=== PATIENT | male | born 1960 | race Caucasian/White ===

== ENCOUNTER → 2018-04-24 | Outpatient (CLI) | payer OTHER ==
[2018-04-24 11:56] LABS: BASO # 0.1 10^3/uL (0.0-0.2); BASO % 0.7 % (0.0-1.0); EOS # 0.2 10^3/uL (0.0-0.50); EOS % 2.9 % (0.0-3.0); HEMOGLOBIN 15.1 g/dl (13.5-17.5); IMMATURE GRANULOCYTE % 0.3 % (0-3.0); LYMPH # 2.2 10^3/uL (1.5-4.5); LYMPH % 28.9 % (24.0-44.0); MEAN CORPUSCULAR HEMOGLOBIN 29.9 pg (27.0-33.0); MEAN CORPUSCULAR HGB CONC 33.6 g/dl (32.0-36.5); MEAN CORPUSCULAR VOLUME 89.1 fl (80.0-96.0); MONO # 0.6 10^3/uL (0.0-0.8); MONO % 7.8 % (0.0-5.0); NEUTROPHILS # 4.5 10^3/uL (1.8-7.7); NEUTROPHILS % 59.4 % (36.0-66.0); PLATELET COUNT, AUTOMATED 244 10^3/uL (150-450); RED BLOOD COUNT 5.05 10^6/uL (4.30-6.10); RED CELL DISTRIBUTION WIDTH 13.4 % (11.5-14.5); WHITE BLOOD COUNT 7.6 10^3/uL (4.0-10.0)
[2018-04-24 19:14] LABS: ALBUMIN 3.7 GM/DL (3.2-5.2); ALBUMIN/GLOBULIN RATIO 1.16 (1.00-1.93); ALKALINE PHOSPHATASE 63 U/L (45-117); ALT/SGPT 41 U/L (12-78); ANION GAP 10 MEQ/L (8-16); AST/SGOT 20 U/L (7-37); BILIRUBIN,TOTAL 0.4 MG/DL (0.2-1.0); BLOOD UREA NITROGEN 14 MG/DL (7-18); CARBON DIOXIDE LEVEL 27 MEQ/L (21-32); CHLORIDE LEVEL 105 MEQ/L (98-107); CHOLESTEROL LEVEL 213 MG/DL (<200); CHOLESTEROL RISK RATIO 5.071 (<5); CREATININE FOR GFR 1.39 MG/DL (0.70-1.30); FREE T4 1.16 NG/DL (0.76-1.46); GLOMERULAR FILTRATION RATE 56.1 (>56); GLUCOSE, FASTING 89 MG/DL (70-100); HDL CHOLESTEROL 42 MG/DL (>40); LDL CHOLESTEROL 100 MG/DL (<100); NON-HDL-C 171 MG/DL; POTASSIUM SERUM 4.6 MEQ/L (3.5-5.1); SODIUM LEVEL 142 MEQ/L (136-145); TOTAL PROTEIN 6.9 GM/DL (6.4-8.2); TRIGLYCERIDES LEVEL 356 MG/DL (<150)
== END ==
LOC: M LRY 08:03
DX: C84.00 Mycosis fungoides, unspecified site (principal)
CPT/HCPCS: 80053

== ENCOUNTER → 2018-05-08 | Outpatient (CLI) | payer OTHER ==
[2018-05-08 11:21] LABS: BASO # 0.1 10^3/uL (0.0-0.2); BASO % 0.7 % (0.0-1.0); EOS # 0.2 10^3/uL (0.0-0.50); EOS % 2.3 % (0.0-3.0); HEMATOCRIT 44.6 % (42.0-52.0); HEMOGLOBIN 15.3 g/dl (13.5-17.5); IMMATURE GRANULOCYTE % 0.3 % (0-3.0); LYMPH # 2.5 10^3/uL (1.5-4.5); LYMPH % 27.6 % (24.0-44.0); MEAN CORPUSCULAR HEMOGLOBIN 30.1 pg (27.0-33.0); MEAN CORPUSCULAR HGB CONC 34.3 g/dl (32.0-36.5); MEAN CORPUSCULAR VOLUME 87.6 fl (80.0-96.0); MONO # 0.8 10^3/uL (0.0-0.8); MONO % 8.6 % (0.0-5.0); NEUTROPHILS # 5.5 10^3/uL (1.8-7.7); NEUTROPHILS % 60.5 % (36.0-66.0); PLATELET COUNT, AUTOMATED 223 10^3/uL (150-450); RED BLOOD COUNT 5.09 10^6/uL (4.30-6.10); RED CELL DISTRIBUTION WIDTH 13.6 % (11.5-14.5); WHITE BLOOD COUNT 9.1 10^3/uL (4.0-10.0)
[2018-05-08 12:16] LABS: ALBUMIN 3.7 GM/DL (3.2-5.2); ALBUMIN/GLOBULIN RATIO 1.16 (1.00-1.93); ALKALINE PHOSPHATASE 59 U/L (45-117); ALT/SGPT 30 U/L (12-78); ANION GAP 8 MEQ/L (8-16); AST/SGOT 16 U/L (7-37); BILIRUBIN,TOTAL 0.5 MG/DL (0.2-1.0); BLOOD UREA NITROGEN 13 MG/DL (7-18); CALCIUM LEVEL 9.3 MG/DL (8.5-10.1); CARBON DIOXIDE LEVEL 27 MEQ/L (21-32); CHLORIDE LEVEL 106 MEQ/L (98-107); CHOLESTEROL LEVEL 251 MG/DL (<200); CHOLESTEROL RISK RATIO 5.704 (<5); CREATININE FOR GFR 1.35 MG/DL (0.70-1.30); GLUCOSE, FASTING 89 MG/DL (70-100); HDL CHOLESTEROL 44 MG/DL (>40); LDL CHOLESTEROL 158 MG/DL (<100); NON-HDL-C 207 MG/DL; POTASSIUM SERUM 4.6 MEQ/L (3.5-5.1); SODIUM LEVEL 141 MEQ/L (136-145); TOTAL PROTEIN 6.9 GM/DL (6.4-8.2); TRIGLYCERIDES LEVEL 244 MG/DL (<150)
== END ==
LOC: M LRY 08:59
DX: C84.00 Mycosis fungoides, unspecified site (principal)
CPT/HCPCS: 80053

== ENCOUNTER → 2018-05-22 | Outpatient (CLI) | payer OTHER ==
[2018-05-22 12:21] LABS: BASO # 0.1 10^3/uL (0.0-0.2); BASO % 0.9 % (0.0-1.0); EOS # 0.2 10^3/uL (0.0-0.50); EOS % 3.4 % (0.0-3.0); HEMATOCRIT 43.9 % (42.0-52.0); HEMOGLOBIN 14.7 g/dl (13.5-17.5); IMMATURE GRANULOCYTE % 0.3 % (0-3.0); LYMPH # 2.6 10^3/uL (1.5-4.5); LYMPH % 37.1 % (24.0-44.0); MEAN CORPUSCULAR HEMOGLOBIN 29.6 pg (27.0-33.0); MEAN CORPUSCULAR HGB CONC 33.5 g/dl (32.0-36.5); MEAN CORPUSCULAR VOLUME 88.3 fl (80.0-96.0); MONO # 0.6 10^3/uL (0.0-0.8); MONO % 8.8 % (0.0-5.0); NEUTROPHILS # 3.5 10^3/uL (1.8-7.7); NEUTROPHILS % 49.5 % (36.0-66.0); PLATELET COUNT, AUTOMATED 239 10^3/uL (150-450); RED BLOOD COUNT 4.97 10^6/uL (4.30-6.10); RED CELL DISTRIBUTION WIDTH 13.5 % (11.5-14.5)
[2018-05-22 12:38] LABS: ALBUMIN 3.6 GM/DL (3.2-5.2); ALBUMIN/GLOBULIN RATIO 1.06 (1.00-1.93); ALKALINE PHOSPHATASE 51 U/L (45-117); ALT/SGPT 30 U/L (12-78); ANION GAP 8 MEQ/L (8-16); AST/SGOT 15 U/L (7-37); BILIRUBIN,TOTAL 0.3 MG/DL (0.2-1.0); BLOOD UREA NITROGEN 17 MG/DL (7-18); CALCIUM LEVEL 8.9 MG/DL (8.5-10.1); CARBON DIOXIDE LEVEL 25 MEQ/L (21-32); CHLORIDE LEVEL 105 MEQ/L (98-107); CHOLESTEROL LEVEL 277 MG/DL (<200); CHOLESTEROL RISK RATIO 6.756 (<5); CREATININE FOR GFR 1.21 MG/DL (0.70-1.30); GLOMERULAR FILTRATION RATE > 60.0 (>56); GLUCOSE, FASTING 96 MG/DL (70-100); HDL CHOLESTEROL 41 MG/DL (>40); LDL CHOLESTEROL 157 MG/DL (<100); NON-HDL-C 236 MG/DL; POTASSIUM SERUM 4.4 MEQ/L (3.5-5.1); SODIUM LEVEL 138 MEQ/L (136-145); TRIGLYCERIDES LEVEL 394 MG/DL (<150)
== END ==
LOC: M LRY 09:12
DX: C84.00 Mycosis fungoides, unspecified site (principal)
CPT/HCPCS: 80053

== ENCOUNTER → 2018-07-17 | Outpatient (CLI) | payer OTHER ==
[~2018-07-17] MED LIST: GASTROGRAFIN SOLUTION 30ML (Q9963) As Ordered ONE; ISOVUE-370 76% 100ML VIAL (Q9967) As Ordered ONE
--- NOTE | 2018-07-18 06:51 | REP ---
Clinical: Mycosis fungoides. Technique: Axial contrast enhanced images from the thoracic inlet to the upper abdomen with coronal and sagittal re-formations using 100 ml Isovue 370 intravenous contrast material. Findings: The bilateral lung whaley are well-aerated and essentially clear 2 mm and 3 mm nodules are identified along the right major fissure (images [id number]) which are nonspecific. No further consolidation, significant nodule or mass lesion appreciated. A small calcified granuloma is noted in the anterior left lower lobe (image 55). No pleural effusion or pneumothorax. Tracheobronchial tree is patent. Mediastinum demonstrates normal thoracic aorta, pulmonary vasculature and heart/pericardium. No axillary, hilar, or mediastinal adenopathy. Surrounding musculoskeletal structures are intact and without focal abnormality. Limited upper abdomen demonstrates normal bilateral adrenal glands. Impression: Two nonspecific noncalcified nodules measuring 2-3 mm along the right major fissure. Examination is otherwise normal. Electronically Signed by Jonathan Harrison MD 07/18/2018 06:43 A
--- NOTE | 2018-07-18 06:56 | REP ---
Clinical: Mycosis fungoides. Technique: Axial contrast enhanced images from the lung bases to the pubic symphysis using oral (per protocol) and 100 ml Isovue 370 intravenous contrast material with delayed images of the abdomen as well as coronal and sagittal re-formations. Comparison: None. Findings: Lung bases are clear. Visualized heart and pericardium normal. Diffuse fatty infiltration to the liver noted without focal hepatic lesion. Spleen, pancreas, gallbladder, bilateral adrenal glands and kidneys are normal. The enteric system including stomach, small, and large bowel is without obstruction or acute inflammatory process. Normal terminal ileum and appendix are identified in the right lower quadrant. Pelvis demonstrates normal sigmoid colon. The prostate gland is significantly heterogeneous and enlarged measuring 6 cm maximal diameter and demonstrating mass effect on the bladder. Small fat containing bilateral inguinal hernias noted. No ascites. No free air. No intraperitoneal or retroperitoneal adenopathy. Subcentimeter fat containing periumbilical hernia identified. Abdominal aorta and vasculature without aneurysm or dissection. Musculoskeletal structures are intact. Impression: 1. Hepatic steatosis. 2. Enlarged heterogeneous enhancing prostate gland measuring 6 cm maximal diameter. 3. Small fat containing bilateral inguinal hernias. Electronically Signed by Jonathan Harrison MD 07/18/2018 06:47 A
== END ==
LOC: M RAD 12:35
PROVIDERS: ATTEND Dermatology
DX: C84.00 Mycosis fungoides, unspecified site (principal); K76.89 Other specified diseases of liver; N40.0 Benign prostatic hyperplasia without lower urinary tract symptoms; K40.90 Unilateral inguinal hernia, without obstruction or gangrene, not specified as recurrent; R91.8 Other nonspecific abnormal finding of lung field
CPT/HCPCS: 71260; 74177; Q9963; Q9967

== ENCOUNTER → 2018-09-04 | Outpatient (CLI) | payer OTHER ==
[2018-09-04 12:50] LABS: BASO # 0.1 10^3/uL (0.0-0.2); BASO % 0.7 % (0.0-1.0); EOS # 0.2 10^3/uL (0.0-0.50); EOS % 2.7 % (0.0-3.0); HEMATOCRIT 44.2 % (42.0-52.0); HEMOGLOBIN 14.3 g/dl (13.5-17.5); LYMPH # 2.4 10^3/uL (1.5-4.5); LYMPH % 29.2 % (24.0-44.0); MEAN CORPUSCULAR HGB CONC 32.4 g/dl (32.0-36.5); MEAN CORPUSCULAR VOLUME 92.9 fl (80.0-96.0); MONO # 0.7 10^3/uL (0.0-0.8); MONO % 8.3 % (0.0-5.0); NEUTROPHILS # 4.9 10^3/uL (1.8-7.7); NEUTROPHILS % 58.7 % (36.0-66.0); PLATELET COUNT, AUTOMATED 204 10^3/uL (150-450); RED BLOOD COUNT 4.76 10^6/uL (4.30-6.10); WHITE BLOOD COUNT 8.3 10^3/uL (4.0-10.0)
[2018-09-04 12:55] LABS: ALBUMIN 3.9 GM/DL (3.2-5.2); ALT/SGPT 44 U/L (12-78); BILIRUBIN,TOTAL 0.4 MG/DL (0.2-1.0); BLOOD UREA NITROGEN 15 MG/DL (7-18); CALCIUM LEVEL 9.3 MG/DL (8.5-10.1); CARBON DIOXIDE LEVEL 28 MEQ/L (21-32); CHLORIDE LEVEL 107 MEQ/L (98-107); CHOLESTEROL LEVEL 233 MG/DL (<200); CHOLESTEROL RISK RATIO 4.755 (<5); CREATININE FOR GFR 1.24 MG/DL (0.70-1.30); GLOMERULAR FILTRATION RATE > 60.0 (>56); GLUCOSE, FASTING 92 MG/DL (70-100); HDL CHOLESTEROL 49 MG/DL (>40); LDL CHOLESTEROL 132 MG/DL (<100); NON-HDL-C 184 MG/DL; POTASSIUM SERUM 4.4 MEQ/L (3.5-5.1); SODIUM LEVEL 143 MEQ/L (136-145); THYROXINE (T4) 9.4 UG/DL (4.5-12.0); TOTAL PROTEIN 7.1 GM/DL (6.4-8.2); TRIGLYCERIDES LEVEL 259 MG/DL (<150)
== END ==
LOC: M LRY 09:21
PROVIDERS: ATTEND Dermatology
DX: C84.00 Mycosis fungoides, unspecified site (principal)

== ENCOUNTER → 2019-02-06 | Outpatient (CLI) | payer OTHER ==
[2019-02-06 11:24] LABS: BASO # 0.1 10^3/uL (0.0-0.2); BASO % 0.8 % (0.0-1.0); EOS # 0.2 10^3/uL (0.0-0.50); EOS % 2.9 % (0.0-3.0); HEMATOCRIT 43.6 % (42.0-52.0); HEMOGLOBIN 14.5 g/dl (13.5-17.5); LYMPH # 2.7 10^3/uL (1.5-4.5); LYMPH % 36.6 % (24.0-44.0); MEAN CORPUSCULAR HEMOGLOBIN 30.4 pg (27.0-33.0); MEAN CORPUSCULAR HGB CONC 33.3 g/dl (32.0-36.5); MEAN CORPUSCULAR VOLUME 91.4 fl (80.0-96.0); MONO # 0.7 10^3/uL (0.0-0.8); MONO % 9.8 % (0.0-5.0); NEUTROPHILS # 3.7 10^3/uL (1.8-7.7); NEUTROPHILS % 49.8 % (36.0-66.0); PLATELET COUNT, AUTOMATED 195 10^3/uL (150-450); RED BLOOD COUNT 4.77 10^6/uL (4.30-6.10); WHITE BLOOD COUNT 7.3 10^3/uL (4.0-10.0)
[2019-02-06 11:28] LABS: ALBUMIN 3.6 GM/DL (3.2-5.2); ALT/SGPT 29 U/L (12-78); BILIRUBIN,TOTAL 0.3 MG/DL (0.2-1.0); BLOOD UREA NITROGEN 12 MG/DL (7-18); CALCIUM LEVEL 9.2 MG/DL (8.5-10.1); CARBON DIOXIDE LEVEL 30 MEQ/L (21-32); CHLORIDE LEVEL 109 MEQ/L (98-107); CHOLESTEROL LEVEL 189 MG/DL (<200); CHOLESTEROL RISK RATIO 4.108 (<5); CREATININE FOR GFR 1.27 MG/DL (0.70-1.30); FREE T4 0.92 NG/DL (0.76-1.46); GLOMERULAR FILTRATION RATE > 60.0 (>56); GLUCOSE, FASTING 77 MG/DL (70-100); HDL CHOLESTEROL 46 MG/DL (>40); LDL CHOLESTEROL 77 MG/DL (<100); NON-HDL-C 143 MG/DL; POTASSIUM SERUM 4.6 MEQ/L (3.5-5.1); SODIUM LEVEL 142 MEQ/L (136-145); TOTAL PROTEIN 6.6 GM/DL (6.4-8.2); TRIGLYCERIDES LEVEL 330 MG/DL (<150)
== END ==
LOC: M LRY 08:16
PROVIDERS: ATTEND Dermatology
DX: C84.00 Mycosis fungoides, unspecified site (principal)

== ENCOUNTER → 2019-12-17 | Outpatient (CLI) | payer OTHER ==
[2019-12-17 13:20] LABS: BASO # 0.1 10^3/uL (0.0-0.2); BASO % 0.6 % (0.0-1.0); EOS # 0.2 10^3/uL (0.0-0.5); EOS % 2.1 % (0.0-3.0); HEMATOCRIT 44.9 % (42.0-52.0); HEMOGLOBIN 14.7 g/dl (13.5-17.5); LYMPH # 3.2 10^3/uL (1.5-5.0); MEAN CORPUSCULAR HEMOGLOBIN 29.8 pg (27.0-33.0); MEAN CORPUSCULAR HGB CONC 32.7 g/dl (32.0-36.5); MEAN CORPUSCULAR VOLUME 91.1 fl (80.0-96.0); MONO % 10.1 % (0.0-5.0); NEUTROPHILS # 5.4 10^3/uL (1.5-8.5); PLATELET COUNT, AUTOMATED 212 10^3/uL (150-450); RED BLOOD COUNT 4.93 10^6/uL (4.30-6.10); WHITE BLOOD COUNT 9.9 10^3/uL (4.0-10.0)
[2019-12-17 14:14] LABS: ALBUMIN 3.8 GM/DL (3.2-5.2); ALT/SGPT 48 U/L (12-78); BILIRUBIN,TOTAL 0.3 MG/DL (0.2-1.0); BLOOD UREA NITROGEN 13 MG/DL (7-18); CALCIUM LEVEL 9.5 MG/DL (8.5-10.1); CARBON DIOXIDE LEVEL 29 MEQ/L (21-32); CHLORIDE LEVEL 107 MEQ/L (98-107); CHOLESTEROL LEVEL 244 MG/DL (<200); CHOLESTEROL RISK RATIO 5.304 (<5); FREE T4 1.16 NG/DL (0.76-1.46); GLOMERULAR FILTRATION RATE > 60.0 (>56); GLUCOSE, FASTING 70 MG/DL (70-100); HDL CHOLESTEROL 46 MG/DL (>40); LDL CHOLESTEROL 143 MG/DL (<100); NON-HDL-C 198 MG/DL; POTASSIUM SERUM 4.9 MEQ/L (3.5-5.1); SODIUM LEVEL 140 MEQ/L (136-145); TRIGLYCERIDES LEVEL 277 MG/DL (<150)
== END ==
LOC: M LRY 09:11
PROVIDERS: ATTEND Dermatology
DX: C84.00 Mycosis fungoides, unspecified site (principal)

== ENCOUNTER → 2020-12-04 | Outpatient (CLI) | payer OTHER ==
--- NOTE | 2020-12-04 15:01 | RADONC.CN ---
Radiation Oncology Hx/Consult Radiation Oncology Consult Date of Service: Dec 04, 2020 Pt Identifier John Tomlinson is a 60 year old male with a history of mycosis fungoides, mixed patch and plaque type, dating back many years. He has received a number of therapies for this including PUVA, topical corticosteroids, and also focal RT to the left pre-auricular and post-auricular skin in 2019 @ [facility]. He is seen today at the request of Tish Lou ([facility]) for consideration of additional focal RT to a troublesome plaque on the posterior right thigh, which bothers him when he sits. Diagnosis/Treatment History Oncologic History Followed @ [facility] as well as [facility] (Dr. Neri) pathology consistent with MF 2018 Has tried PUVA, Bexarotene, focal RT 12 Gy in 3 fractions to left pre- and post- auricular skin 2019, all with good effect Currently using topical fluocinonide Interval History John is former , now works as a civilian contractor at [employer]. He has no pain from his MF per se, but notes discomfort with friction. No pruritis, no bleeding. The right posterior thigh lesion has been present for at least 6 months. It is bothersome because it rubs and is uncomfortable when he sits. He has no fevers, chills, night sweats or weight loss. [facility] Past Medical History: None remarkable Past Surgical History: None remarkable Family History: None remarkable Social History: Current 1/2 ppd smoker for 30 years Drinks beer 1-2 days per week Allergies / Meds Allergies: Coded Allergies: No Known Allergies (Unverified , 02/01/16) Review of Systems General: Reports: Normal Appetite Constitutional: Denies: Chills, Fever, Night Sweats Eyes: Denies: Pain, Vision change HEENT: Denies: Head Aches, Dysphagia, Sore Throat Skin: Reports: Lesions Pulmonary: Denies: Dyspnea, Cough Cardiovascular: Denies: Chest Pain, Palpitations, Edema Gastrointestinal: Denies: Nausea, Vomiting, Abdominal Pain, Diarrhea Genitourinary: Denies: Dysuria, Frequency, Incontinence Hematologic: Denies: Bruising, Petecchia, Enlarged Lymph Nodes Musculoskeletal: Denies: Neck pain, Back pain Neurological: Denies: Weakness, Numbness, Incoordination Psych: Reports: Mood Normal; Denies: Memory Issues, Thoughts of Self Harm Vital Signs Ht 70" Wt 245 lbs BMI 35 T 97.6 P 62 RR 18 BP 127/74 O2 100% Pain 0 Fatigue 0 General Exam: Positive: Alert, Cooperative, No Acute Distress Eye Exam: Positive: PERRLA, EOMI ENT EXAM: Positive: Atraumatic, Mucous membr. moist/pink, Pharynx Normal Neck Exam: Positive: Supple; Negative: Lymphadenopathy Chest Exam: Positive: Clear to auscultation Heart Exam: Positive: Rate Normal Abdomen Exam: Positive: Soft Extremity Exam: Negative: Edema Skin Exam: Positive: Other skin issue (Scattered red papules on the BL arms, interspersed violacious and/or hypermelanotic patches/and or plaques scattered. In particular the right hayes has a confluent area of hypermelanotic flat patches with no surrounding induration, there are newer looking lesions adjacent. The lesion on the right posteromedial thigh is an indurated plaque ~6.5 cm in greatest dimension. It is violacious and non-tender ) Neuro Exam: Positive: Normal Gait, Normal Speech, Cranial Nerves 3-12 NL Psych Exam: Positive: Mental status NL Diagnostic and Laboratory Diagnostic Review Radiologic images, relevant labs and pathology reports were personally reviewed and discussed with Mr. Tomlinson. Assessment and Plan Impression Mr. Tomlinson is a 60 year old male with a history of mycosis fungoides, mixed patch and plaque type, dating back many years. He has received a number of the [place] for this including PUVA, topical corticosteroids, and also focal RT to the left pre-auricular and post-auricular skin in 2019 @ [facility]. He is seen today at the request of Tish Lou ([facility]) for consideration of additional focal RT to a troublesome plaque on the posterior right thigh, which bothers him when he sits. Stage MF T1bN0 stage IA Performance Status ECOG 0 Plan We had an extensive discussion with Mr. Tomlinson regarding the diagnosis at hand and available therapeutic options. He has a bothersome right posterior thigh plaque which is amenable to focal RT. We discussed treating other plaques (such as the vertex scalp, which bothers him when he gets a haircut), but we agreed to stick to the thigh for now. I would give him 12.5 Gy in 5 fractions with 6 MeV electrons and a 0.5 cm bolus. The field aperture could be determined at simulation. We discussed the logistics of receiving radiation therapy in detail including the need for a 1-time planning session. This can occur next week. I anticipate no significant skin reaction other than transient redness, and possibly mild skin pigmentation changes down the line. After discussing the risks, benefits and alternatives to radiation therapy, Mr. Tomlinson was amenable to pursuing radiotherapy. All questions were answered to the patient's satisfaction. We instructed the patient that if there were any questions,concerns or changes in clinical status in the interim to contact us. Recommendations Palliative focal RT 12.5 Gy in 5 fractions with electrons Simulation next week Billing Statement Total time of [31] minutes was spent preparing for the visit [1], obtaining HPI [5], examining the patient [5], reviewing diagnostic tests [2], discussing management options [8], coordinating care [2], and writing this note [8]. CAM PILLAI MD Dec 04, 2020 15:01
== END ==
LOC: M ONCR 12:38
PROVIDERS: ATTEND General Practice
DX: C84.00 Mycosis fungoides, unspecified site (principal); F17.210 Nicotine dependence, cigarettes, uncomplicated

== ENCOUNTER 2020-12-18 13:45 | Outpatient (RCR) | payer OTHER ==
[2020-12-31] MEDS ORDERED: ROPI0.253 PO (19:30)
[2020-12-31] MEDS ORDERED: PRED10PA2 PO (19:30)
[2020-12-31] MEDS ORDERED: BACI500O21 TOP (21:07)
== END 2020-12-30 ==
LOC: M ONCR 13:45
PROVIDERS: ATTEND General Practice
DX: C84.09 Mycosis fungoides, extranodal and solid organ sites (principal)

== ENCOUNTER 2020-12-31 19:23 | Emergency (ER) | payer OTHER ==
[~2020-12-31] VITALS: Ht 172.7 cm; Wt 111.4 kg
[2020-12-31] MEDS ORDERED: ROPI0.253 PO (19:30)
[2020-12-31] MEDS ORDERED: PRED10PA2 PO (19:30)
[2020-12-31] MEDS ORDERED: BACI500O21 TOP (21:07)
[2020-12-31 21:12] VITALS: BP 140/72
== END 2020-12-31 21:21 | disposition home or self-care (01) ==
LOC: M ED 19:23
DX: T24.202A Burn of second degree of unspecified site of left lower limb, except ankle and foot, initial encounter (principal); T24.201A Burn of second degree of unspecified site of right lower limb, except ankle and foot, initial encounter; T22.112A Burn of first degree of left forearm, initial encounter; T22.111A Burn of first degree of right forearm, initial encounter; T31.0 Burns involving less than 10% of body surface; X32.XXXA Exposure to sunlight, initial encounter; Y92.89 Other specified places as the place of occurrence of the external cause; Y93.9 Activity, unspecified; Y99.9 Unspecified external cause status; F17.200 Nicotine dependence, unspecified, uncomplicated

== ENCOUNTER 2021-01-11 15:09 | Outpatient (RCR) | payer OTHER ==
[~2021-01-11 15:09] MED LIST changes: +BACI500O21 TOP; -GASTROGRAFIN SOLUTION 30ML (Q9963) As Ordered ONE; -ISOVUE-370 76% 100ML VIAL (Q9967) As Ordered ONE; +PRED10PA2 PO; +ROPI0.253 PO
== END 2021-01-30 ==
LOC: M ONCR 15:09
PROVIDERS: ATTEND General Practice
DX: C84.09 Mycosis fungoides, extranodal and solid organ sites (principal)

== ENCOUNTER → 2021-02-12 | Outpatient (CLI) | payer OTHER ==
--- NOTE | 2021-02-12 08:43 | RADENCPD ---
Date/Time of Encounter Date of Encounter: Feb 12, 2021 Time of Encounter: 08:38 Encounter John came in for a brief follow up 1 month s/p palliative RT 12.5 Gy in 5 fractions to his right posterior thigh MF lesion. He reports that the lesion is no longer bothersome, has flattened and is flaking actively. He has resumed PUVA treatment with Tish at [facility]. On exam the lesion on the right posterior thigh is flat, minimally indurated and has less pigmentation, the overlying skin is turning over with active dry desquamation. Assessment: Good early clinical response, John is satisfied as the lesion is no longer painful when he sits or pruritic. Plan: We discussed monitoring for response to PUVA for now, he will follow up in 2 months, at which time we can consider additional RT to any recalcitrant lesions (NB scalp which is the most bothersome site). By then the full effects of the RT to the right posterior thigh should be manifest. CAM PILLAI MD Feb 12, 2021 08:43
== END ==
LOC: M ONCR 08:21
PROVIDERS: ATTEND General Practice
DX: C84.09 Mycosis fungoides, extranodal and solid organ sites (principal)

== ENCOUNTER → 2021-03-26 | Outpatient (CLI) | payer OTHER | LOC: M LAB 07:33 | PROVIDERS: ATTEND Dermatology | DX: C84.09 Mycosis fungoides, extranodal and solid organ sites (principal); Z79.899 Other long term (current) drug therapy ==

== ENCOUNTER → 2021-03-28 | Outpatient (CLI) | payer OTHER ==
[2021-03-28 08:34] LABS: BASO # 0.1 10^3/uL (0.0-0.2); BASO % 0.8 % (0.0-1.0); EOS # 0.2 10^3/uL (0.0-0.5); EOS % 2.4 % (0.0-3.0); HEMATOCRIT 41.8 % (42.0-52.0); HEMOGLOBIN 13.7 g/dl (13.5-17.5); LYMPH # 1.9 10^3/uL (1.5-5.0); LYMPH % 22.1 % (24.0-44.0); MEAN CORPUSCULAR HEMOGLOBIN 29.8 pg (27.0-33.0); MEAN CORPUSCULAR HGB CONC 32.8 g/dl (32.0-36.5); MEAN CORPUSCULAR VOLUME 91.1 fl (80.0-96.0); MONO % 11.9 % (2.0-8.0); NEUTROPHILS # 5.5 10^3/uL (1.5-8.5); NEUTROPHILS % 62.5 % (36.0-66.0); PLATELET COUNT, AUTOMATED 222 10^3/uL (150-450); RED BLOOD COUNT 4.59 10^6/uL (4.30-6.10); WHITE BLOOD COUNT 8.8 10^3/uL (4.0-10.0)
[2021-03-28 09:11] LABS: ALBUMIN 3.5 GM/DL (3.2-5.2); BILIRUBIN,TOTAL 0.7 MG/DL (0.2-1.0); CHOLESTEROL RISK RATIO 3.137 (<5); CREATININE FOR GFR 1.32 MG/DL (0.70-1.30); FREE T4 1.04 NG/DL (0.76-1.46); GLOMERULAR FILTRATION RATE 58.9 (>49); POTASSIUM SERUM 4.4 MEQ/L (3.5-5.1); THYROID STIMULATING HORMONE 1.87 uIU/ML (0.358-3.740)
== END ==
LOC: M LAB 08:09
PROVIDERS: ATTEND Dermatology
DX: Z79.899 Other long term (current) drug therapy (principal); C84.09 Mycosis fungoides, extranodal and solid organ sites

== ENCOUNTER → 2021-03-30 | Outpatient (CLI) | payer OTHER ==
[~2021-03-30] MED LIST changes: +GASTROGRAFIN SOLUTION 30ML (Q9963) As Ordered ONE; +ISOVUE-370 76% 100ML VIAL As Ordered ONE
--- NOTE | 2021-03-31 06:55 | REP ---
INDICATION: SKIN LYMPHOMA COMPARISON: 07/17/2018 TECHNIQUE: Axial contrast enhanced images from the thoracic inlet to the upper abdomen using 100 ml Isovue 370 intravenous contrast material followed by CT of the abdomen and pelvis. Coronal and sagittal reformations obtained. This CT examination was performed using the following dose reduction techniques: Automated exposure control, adjustment of mA and/or kv according to the patient's size, and use of iterative reconstruction technique. FINDINGS: Bilateral lung whaley are relatively symmetric and well aerated. Mild chronic age-related changes are appreciated. There is a relatively new 5 mm noncalcified nodule in the left upper lobe (series 204; image 41) along with chronic calcified granuloma in the left lower lobe. No acute consolidation, effusion or pneumothorax. Tracheobronchial tree is patent. No significant adenopathy. Thoracic aorta, pulmonary vasculature, and heart/pericardium are relatively normal. Limited upper abdomen demonstrates normal bilateral adrenal glands along with mild hepatosteatosis. Surrounding musculoskeletal structures without acute osseous abnormality. IMPRESSION: 1. 5 mm soft tissue nodule in the left upper lobe. Six-month follow-up examination is recommended. . <Electronically signed by Jonathan Harrison > 03/31/21 [id number]
--- NOTE | 2021-03-31 07:00 | REP ---
INDICATION: SKIN LYMPHOMA. COMPARISON: 07/17/2018 TECHNIQUE: Axial contrast-enhanced images from the lung bases to the pubic symphysis using oral and 100 cc Isovue 370 intravenous contrast material. Delayed images of the abdomen obtained along with coronal and sagittal reformations. This CT examination was performed using the following dose reduction techniques: Automated exposure control, adjustment of mA and/or kv according to the patient's size, and the use of iterative reconstruction technique. FINDINGS: Liver demonstrates mild fatty infiltration without focal hepatic lesion. Spleen, pancreas, gallbladder, bilateral adrenal glands and right kidney are normal. Left kidney includes 1.2 cm lower pole cyst. The enteric system including stomach, small, and large bowel appears normal. No evidence for obstruction or acute inflammatory process. Normal terminal ileum and appendix are identified in the right lower quadrant. Few scattered sigmoid diverticula noted without acute diverticulitis. Pelvis demonstrates heterogeneous enlarged prostate gland measuring 6.7 cm maximal diameter with mass effect on the base of the bladder. Small fat containing inguinal hernias noted. No ascites. No free air. No intraperitoneal or retroperitoneal adenopathy. Abdominal aorta and vasculature appear normal. Musculoskeletal structures are intact and without acute osseous abnormality. IMPRESSION: 1. No acute abdominopelvic pathology appreciated. 2. Prostatomegaly with mass effect on the base of the bladder. 3. Further nonacute findings including simple left renal cyst and hepatosteatosis along with few scattered sigmoid diverticula. <Electronically signed by Jonathan Harrison > 03/31/21 0656
== END ==
LOC: M RAD 13:21
PROVIDERS: ATTEND Dermatology
DX: C84.00 Mycosis fungoides, unspecified site (principal)
CPT/HCPCS: 71260; 74177; Q9963; Q9967

== ENCOUNTER → 2021-04-14 | Outpatient (CLI) | payer OTHER ==
[~2021-04-14] MED LIST changes: -GASTROGRAFIN SOLUTION 30ML (Q9963) As Ordered ONE; -ISOVUE-370 76% 100ML VIAL As Ordered ONE; +TRIA1CR80
--- NOTE | 2021-04-14 09:38 | RADONC ---
Radiation Oncology Hx/FUP Radiation Oncology Hx/FUP Date of Service: Apr 14, 2021 Pt Identifier John Tomlinson is a 60 year old male seen for a followup visit today at the department of radiation oncology for a history of mycosis fungoides, mixed patch and plaque type, dating back many years. He has received a number of therapies for this including PUVA, topical corticosteroids, and also focal RT to the left pre-auricular and post-auricular skin in 2019 @ [facility]. He completed focal RT to a patch on the posterior right thigh 12.5 Gy in 5 fraction 01/05/21-01/11/21. Diagnosis/Treatment History Oncologic History Followed @ [facility] as well as [facility] (Dr. Neri) pathology consistent with MF 2019 Has tried PUVA, Bexarotene, focal RT 12 Gy in 3 fractions to left pre- and post- auricular skin 2019, all with good effect 01/06/12-01/11/21 12.5 Gy in 5 fractions to right posterior thigh Currently using topical fluocinonide Interval History John reports he has a bothersome spot in the right pre-auricular area. The right posterior thigh patch no longer bothers him and has flattened although it still appears discolored. He is using a new strategy with the topical cream per Dr. Winslow. 3 days in so far he has had some positive effect. He also has scalp lesions, BL haeys lesions and a large plaque on his right posterior shoulder. Current Therapy Fluocinonide cream Stage MF T1bN0 stage IA Social History: Current 1/2 ppd smoker for 30 years Drinks beer 1-2 days per week Allergies / Meds Allergies: Coded Allergies: No Known Allergies (Unverified , 02/01/16) Home Meds Reported Medications Triamcinolone Acet (Triamcinolone Acetonide 0.1% Crm) 80 Gm Cream..g. 04/14/21 Discontinued Reported Medications Ropinirole HCl (Ropinirole HCl) 0.25 Mg Tablet, 0.25 MG PO QPM for 30 Days, #30 TAB 12/31/20 Prednisone (Prednisone) 10 Mg Tab.ds.pk, 10 MG PO DAILY for 5 Days, #1 DP 12/31/20 Discontinued Scripts Bacitracin (Bacitracin) 28 Gm Oint...g., 1 APLCT TOP BID for 7 Days, #30 GRAM apply to affected area(s) Prov:MAURICIO BURNS AARON. 12/31/20 Review of Systems Review of Systems Constitutional: Denies: Fever, Night Sweats, Weight Loss Eyes: Denies: Pain HEENT: Denies: Head Aches Skin: Reports: Lesions Psych: Reports: Mood Normal Physical Examination Vital Signs Wt 246 lbs T 96.2 P 56 RR 18 BP 131/83 O2 100% Pain 0 Fatigue 0 General Exam: Alert, Cooperative, No Acute Distress Skin Exam: Lesion (There are diffuse patches and plaques of MF most notably the circumferential shins BL. There is a small red raised patch right preauricular skin 2 cm diameter. There is a 10 cm plaque on the posterior right shoulder. ) Psych Exam: Mental status NL Diagnostic and Laboratory Diagnostic Review Radiologic images, relevant labs and pathology reports were personally reviewed and discussed with Mr. Tomlinson. Assessment and Plan Impression Assessment Mr. Tomlinson is a 60 year old male with a history of mycosis fungoides, mixed patch and plaque type, dating back many years. He has received a number of therapies for this including PUVA, topical corticosteroids, and also focal RT to the left pre-auricular and post-auricular skin in 2019 @ [facility]. He completed focal RT to a patch on the posterior right thigh 12.5 Gy in 5 fraction 01/05/21- 01/11/21. He would like to treat the right preauricular lesion because it is bothersome. The right posterior thigh lesion has a good ND, no longer bothersome or raised persists only as a small discolored patch of skin. I will give 12.5 Gy to the preauricular lesion with 6 MeV electrons and 0.5 cm bolus. For his other lesions we discussed revisiting in June after an adequate trial of topical therapy per Dr. Winslow. For his shins which harbor circumferential disease, he would need water bath treatment which should be effective with low dose RT. Performance Status ECOG 1 Plan 12.5 Gy in 5 fractions to right pre-auricular lesion Simulation 04/16/21 Treatment the following week Mr. Tomlinson was encouraged to call with questions or concerns in the interim period. Billing Statement Total time of [25] minutes was spent preparing for the visit [1], obtaining HPI [5], examining the patient [5], reviewing diagnostic tests [3], discussing management options [5], coordinating care [1], and writing this note [5]. CAM PILLAI MD Apr 14, 2021 09:38
== END ==
LOC: M ONCR 08:17
PROVIDERS: ATTEND General Practice
DX: C84.09 Mycosis fungoides, extranodal and solid organ sites (principal); F17.210 Nicotine dependence, cigarettes, uncomplicated; Z92.3 Personal history of irradiation

== ENCOUNTER 2021-04-23 15:51 | Outpatient (RCR) | payer OTHER | END 2021-05-02 | LOC: M ONCR 15:51 | PROVIDERS: ATTEND General Practice | DX: C84.09 Mycosis fungoides, extranodal and solid organ sites (principal) ==

== ENCOUNTER → 2021-05-26 | Outpatient (CLI) | payer OTHER ==
[~2021-05-26] MED LIST changes: +FENT1DIS14 TOP; +MORP-69 PO; +OXYC10TA12 PO; +OXYC1TAB23 PO; +PRED20TA PO; +PRED50TA PO; +SENN-52 PO; +TIZA1TAB12 PO; +TIZA4CAP PO
== END ==
LOC: M ONCR 15:04
PROVIDERS: ATTEND General Practice
DX: C84.09 Mycosis fungoides, extranodal and solid organ sites (principal); Z92.3 Personal history of irradiation

== ENCOUNTER 2021-06-22 15:55 | Outpatient (RCR) | payer OTHER ==
[~2021-06-22 15:55] MED LIST changes: -FENT1DIS14 TOP; -MORP-69 PO; -OXYC10TA12 PO; -OXYC1TAB23 PO; -PRED20TA PO; -PRED50TA PO; -SENN-52 PO; -TIZA1TAB12 PO; -TIZA4CAP PO
== END 2021-07-02 ==
LOC: M ONCR 15:55
PROVIDERS: ATTEND General Practice
DX: C84.09 Mycosis fungoides, extranodal and solid organ sites (principal)

== ENCOUNTER → 2021-07-27 | Outpatient (CLI) | payer OTHER ==
[2021-07-27 17:22] LABS: HEMATOCRIT 41.9 % (42.0-52.0); MEAN CORPUSCULAR HEMOGLOBIN 29.9 pg (27.0-33.0); MEAN CORPUSCULAR HGB CONC 33.4 g/dl (32.0-36.5); MEAN CORPUSCULAR VOLUME 89.5 fl (80.0-96.0); PLATELET COUNT, AUTOMATED 206 10^3/uL (150-450); RED BLOOD COUNT 4.68 10^6/uL (4.30-6.10); WHITE BLOOD COUNT 7.3 10^3/uL (4.0-10.0)
[2021-07-27 17:39] LABS: INR 0.91; PROTHROMBIN TIME 12.7 SECONDS (12.7-14.5)
[2021-07-27 17:43] LABS: ALBUMIN 3.9 GM/DL (3.2-5.2); ALT/SGPT 26 U/L (12-78); BILIRUBIN,TOTAL 0.5 MG/DL (0.2-1.0); BLOOD UREA NITROGEN 17 MG/DL (7-18); C REACTIVE PROTEIN QUANTITATIV 0.32 MG/DL (0.00-0.30); CALCIUM LEVEL 9.3 MG/DL (8.8-10.2); CARBON DIOXIDE LEVEL 29 MEQ/L (21-32); CHLORIDE LEVEL 108 MEQ/L (98-107); CREATININE FOR GFR 1.19 MG/DL (0.70-1.30); GLOMERULAR FILTRATION RATE > 60.0 (>49); GLUCOSE, FASTING 99 MG/DL (70-100); POTASSIUM SERUM 4.4 MEQ/L (3.5-5.1); SODIUM LEVEL 140 MEQ/L (136-145)
[2021-07-27 17:59] LABS: ERYTHROCYTE SEDIMENTATION RATE 7 mm/hr (0-20)
[2021-07-27 21:03] LABS: ATYPICAL LYMPH 3 % (0-5); EOSINOPHILS 1 % (0-3); LYMPHOCYTES 28 % (16-44); MONOCYTES 4 % (0-5); NEUTROPHILS 64 % (28-66); PLATELET ESTIMATE NORMAL (NORMAL)
== END ==
LOC: M ONCR 15:05
PROVIDERS: ATTEND General Practice
DX: C84.09 Mycosis fungoides, extranodal and solid organ sites (principal); F17.210 Nicotine dependence, cigarettes, uncomplicated; R21 Rash and other nonspecific skin eruption; Z92.3 Personal history of irradiation
CPT/HCPCS: 36415; 80053; 83002; 85025; 85610; 85652; 86140; G0463

== ENCOUNTER → 2021-08-02 | Outpatient (CLI) | payer OTHER ==
[~2021-08-02] MED LIST changes: +FENT1DIS14 TOP; +GASTROGRAFIN SOLUTION 30ML (Q9963) As Ordered ONE; +ISOVUE-370 76% 100ML VIAL As Ordered ONE; +MORP-69 PO; +OXYC10TA12 PO; +OXYC1TAB23 PO; +PRED20TA PO; +PRED50TA PO; +SENN-52 PO; +TIZA1TAB12 PO; +TIZA4CAP PO
== END ==
LOC: M RAD 12:55
PROVIDERS: ATTEND General Practice
DX: C84.09 Mycosis fungoides, extranodal and solid organ sites (principal); N40.0 Benign prostatic hyperplasia without lower urinary tract symptoms; R91.8 Other nonspecific abnormal finding of lung field
CPT/HCPCS: 70491; 71260; 74177; Q9963; Q9967

== ENCOUNTER → 2021-08-10 | Outpatient (CLI) | payer OTHER ==
[~2021-08-10] MED LIST changes: -GASTROGRAFIN SOLUTION 30ML (Q9963) As Ordered ONE; -ISOVUE-370 76% 100ML VIAL As Ordered ONE; -OXYC10TA12 PO; -OXYC1TAB23 PO; -PRED20TA PO; -SENN-52 PO; -TIZA4CAP PO
== END ==
LOC: M ONCR 10:21
PROVIDERS: ATTEND General Practice
DX: C84.09 Mycosis fungoides, extranodal and solid organ sites (principal)

== ENCOUNTER → 2021-08-11 | Outpatient (CLI) | payer OTHER ==
[~2021-08-11] MED LIST changes: +LIDOCAINE 1% MDV 20ML VIAL As Ordered ONE; +MIDAZOLAM INJ 2MG/2ML VIAL (J2250 PER 1MG) As Ordered ONE; +NS 1,000 ML IV SCH; -PRED50TA PO; +ceFAZolin 2 GM/D5W 50 ML IV BAG (J0690 PER 500MG) As Ordered ONE; +ceFAZolin SOD 2 GM in IV 1 EA IV ONE; +diphenhydrAMINE 50MG/ML VIAL (J1200) As Ordered ONE; +fentaNYL 100 MCG/2 ML INJECTION As Ordered ONE
[2021-08-11 17:00] VITALS: BP 149/82
== END ==
LOC: M IRPRO 12:56
PROVIDERS: ATTEND Radiology Diagnostic Radiology
DX: C84.09 Mycosis fungoides, extranodal and solid organ sites (principal)
CPT/HCPCS: 36561; 99152; 99153; C1769; C1788; C1894; J0690; J1642; J1644; J2250; J3010

== ENCOUNTER 2021-08-21 14:04 | Inpatient (IN) | payer OTHER ==
[~2021-08-21] VITALS: Ht 177.8 cm; Wt 113.4 kg
[~2021-08-21 14:04] MED LIST changes: -LIDOCAINE 1% MDV 20ML VIAL As Ordered ONE; -MIDAZOLAM INJ 2MG/2ML VIAL (J2250 PER 1MG) As Ordered ONE; -NS 1,000 ML IV SCH; +PRED50TA PO; -ceFAZolin 2 GM/D5W 50 ML IV BAG (J0690 PER 500MG) As Ordered ONE; -ceFAZolin SOD 2 GM in IV 1 EA IV ONE; -diphenhydrAMINE 50MG/ML VIAL (J1200) As Ordered ONE; -fentaNYL 100 MCG/2 ML INJECTION As Ordered ONE
[2021-08-21] MEDS ORDERED: PRED50TA PO (14:13)
[2021-08-21] MEDS ORDERED: MORPHINE 4 MG/ML 1ML VIAL/SYRINGE (J2270) IV ONE ×2 (15:35→19:10)
[2021-08-21 16:44] LABS: HEMATOCRIT 39.6 % (42.0-52.0); MEAN CORPUSCULAR HEMOGLOBIN 30.2 pg (27.0-33.0); MEAN CORPUSCULAR HGB CONC 32.8 g/dl (32.0-36.5); MEAN CORPUSCULAR VOLUME 91.9 fl (80.0-96.0); PLATELET COUNT, AUTOMATED 224 10^3/uL (150-450); RED BLOOD COUNT 4.31 10^6/uL (4.30-6.10); WHITE BLOOD COUNT 9.4 10^3/uL (4.0-10.0)
[2021-08-21] MEDS ORDERED: NS 1,000 ML IV ONE (17:20)
[2021-08-21 17:49] LABS: LYMPHOCYTES 12 % (16-44); MONOCYTES 6 % (0-5); NEUTROPHILS 81 % (28-66)
[2021-08-21 17:51] LABS: PLATELET ESTIMATE NORMAL (NORMAL)
[2021-08-21 18:12] LABS: CALCIUM LEVEL 9.1 MG/DL (8.8-10.2); CREATININE FOR GFR 1.46 MG/DL (0.70-1.30); GLOMERULAR FILTRATION RATE 52.4 (>49); POTASSIUM SERUM 4.1 MEQ/L (3.5-5.1)
[2021-08-21] MEDS ORDERED: NORCO, ANEXSIA 5/325MG TABLET (HYDROcodone/ACETAMINOPHEN) PO ONE (18:15)
[2021-08-21 18:49] LABS: APPEARANCE, URINE CLEAR (CLEAR); BACTERIA, URINE AUTO NEGATIVE (NEGATIVE); BILIRUBIN, URINE AUTO NEGATIVE (NEGATIVE); BLOOD, URINE BLOOD NEGATIVE (NEGATIVE); COLOR, URINE STRAW (YELLOW); GLUCOSE, URINE (UA) AUTO NEGATIVE (NEGATIVE); KETONE, URINE AUTO NEGATIVE (NEGATIVE); LEUKOCYTE ESTERASE, URINE AUTO NEGATIVE (NEGATIVE); NITRITE, URINE AUTO NEGATIVE (NEGATIVE); PROTEIN, URINE AUTO NEGATIVE (NEGATIVE); RBC, URINE AUTO 1 /HPF (0-3); SPECIFIC GRAVITY URINE AUTO 1.008 (1.002-1.035); SQUAMOUS EPITHELIAL CELL UR AU 0 /HPF (0-6); UROBILINOGEN, URINE AUTO 0.2 mg/dL (0.0-2.0); WBC, URINE AUTO 0 /HPF (0-3)
[2021-08-21] MEDS ORDERED: HOME MED LIST COMPLETE! XX SCH (19:50)
[2021-08-21] MEDS ORDERED: TIZA4CAP PO (19:50)
[2021-08-21] MEDS ORDERED: HYDROMORPHONE HCL 0.5 MG/ 0.5 ML SYRINGE (J1170 PER 1) IV PRN (20:00)
[2021-08-21] MEDS ORDERED: NS 500 ML IV SCH (20:15)
[2021-08-21] MEDS ORDERED: ACETAMINOPHEN TAB 650MG DOSE (2X325MG) PO PRN (20:15)
[2021-08-21 23:35] VITALS: BP 166/89
[2021-08-22] MEDS ORDERED: tiZANidine 4 MG TAB PO ONE (00:25)
[2021-08-22 05:43] LABS: CALCIUM LEVEL 8.9 MG/DL (8.8-10.2); CREATININE FOR GFR 1.37 MG/DL (0.70-1.30); GLOMERULAR FILTRATION RATE 56.4 (>49); POTASSIUM SERUM 3.8 MEQ/L (3.5-5.1)
[2021-08-22 06:00] VITALS: BP 155/86
[2021-08-22] MEDS: SODIUM CHLORIDE 0.9% INJ 10 ML SYR IV SCH (08:47)
[2021-08-22] MEDS: fentaNYL 25 MCG/HR PATCH TOP SCH (08:49)
[2021-08-22] MEDS ORDERED: FENTANYL REMOVAL DOCUMENTATION MISC XX SCH (09:00)
[2021-08-22] MEDS ORDERED: OXYC1TAB23 PO (09:10)
[2021-08-22 13:38] VITALS: BP 171/97
[2021-08-22] MEDS ORDERED: PERCOCET 5MG/325MG TAB PO ONE (14:30)
[2021-08-22] MEDS: tiZANidine 4 MG TAB PO SCH (20:19)
[2021-08-22] MEDS: PERCOCET 5MG/325MG TAB PO PRN (20:19)
[2021-08-22 20:25] VITALS: BP 122/64
[2021-08-23] MEDS: PERCOCET 5MG/325MG TAB PO PRN ×4 (01:40→20:59)
[2021-08-23 06:00] VITALS: BP 141/73
[2021-08-23] MEDS: SODIUM CHLORIDE 0.9% INJ 10 ML SYR IV SCH (09:25)
[2021-08-23] MEDS: cefTRIAXone SOD 1 GM in D5W MINI-BAG PLUS 50 ML IV SCH ×2 (11:25→22:55)
[2021-08-23] MEDS: MORPHINE 4 MG/ML 1ML VIAL/SYRINGE (J2270) IV PRN ×3 (11:25→22:54)
[2021-08-23 14:00] VITALS: BP 153/86
[2021-08-23 20:44] VITALS: BP 156/80
[2021-08-23] MEDS: tiZANidine 4 MG TAB PO SCH (20:58)
[2021-08-24 05:09] VITALS: BP 152/70
[2021-08-24] MEDS: SODIUM CHLORIDE 0.9% INJ 10 ML SYR IV PRN (05:15)
[2021-08-24] MEDS: MORPHINE 4 MG/ML 1ML VIAL/SYRINGE (J2270) IV PRN ×4 (05:15→23:36)
[2021-08-24] MEDS ORDERED: FUROSEMIDE 20MG/2ML VIAL (J1940) IV ONE (07:55)
[2021-08-24 08:19] VITALS: BP 152/70
[2021-08-24] MEDS: cefTRIAXone SOD 1 GM in D5W MINI-BAG PLUS 50 ML IV SCH ×2 (09:44→23:32)
[2021-08-24] MEDS: SODIUM CHLORIDE 0.9% INJ 10 ML SYR IV SCH (09:48)
[2021-08-24 14:00] VITALS: BP 138/58
[2021-08-24] MEDS: PERCOCET 5MG/325MG TAB PO PRN (20:46)
[2021-08-24] MEDS: tiZANidine 4 MG TAB PO SCH (20:46)
[2021-08-24 22:00] VITALS: BP 142/69
[2021-08-25] MEDS: MORPHINE 4 MG/ML 1ML VIAL/SYRINGE (J2270) IV PRN ×3 (04:26→19:35)
[2021-08-25 05:22] LABS: HEMATOCRIT 36.4 % (42.0-52.0); HEMOGLOBIN 12.1 g/dl (13.5-17.5); MEAN CORPUSCULAR HEMOGLOBIN 30.5 pg (27.0-33.0); MEAN CORPUSCULAR HGB CONC 33.2 g/dl (32.0-36.5); MEAN CORPUSCULAR VOLUME 91.7 fl (80.0-96.0); PLATELET COUNT, AUTOMATED 207 10^3/uL (150-450); RED BLOOD COUNT 3.97 10^6/uL (4.30-6.10); WHITE BLOOD COUNT 8.1 10^3/uL (4.0-10.0)
[2021-08-25 05:41] LABS: CALCIUM LEVEL 8.7 MG/DL (8.8-10.2); CREATININE FOR GFR 1.36 MG/DL (0.70-1.30); GLOMERULAR FILTRATION RATE 56.9 (>49); MAGNESIUM LEVEL 2.3 MG/DL (1.8-2.4); POTASSIUM SERUM 4.3 MEQ/L (3.5-5.1)
[2021-08-25 06:00] VITALS: BP 160/82
[2021-08-25] MEDS: PERCOCET 5MG/325MG TAB PO PRN ×2 (06:59→23:26)
[2021-08-25] MEDS: SENOKOT S TAB PO SCH ×2 (09:00→20:21)
[2021-08-25] MEDS: fentaNYL 25 MCG/HR PATCH TOP SCH (09:00)
[2021-08-25] MEDS: SODIUM CHLORIDE 0.9% INJ 10 ML SYR IV SCH (09:33)
[2021-08-25] MEDS ORDERED: FUROSEMIDE 40MG/4ML VIAL (J1940) IV ONE (10:30)
[2021-08-25] MEDS ORDERED: MIRALAX *UNIT DOSE* 17GM PACKET PO ONE (10:30)
[2021-08-25] MEDS: cefTRIAXone SOD 1 GM in D5W MINI-BAG PLUS 50 ML IV SCH ×2 (10:56→23:17)
[2021-08-25 14:00] VITALS: BP 155/86
[2021-08-25] MEDS: HEPARIN SOD (PORCINE) 5000UNITS/ML 1ML VIAL/SYRINGE SQ SCH ×2 (14:18→20:22)
[2021-08-25] MEDS: SODIUM CHLORIDE 0.9% INJ 10 ML SYR IV PRN (14:34)
[2021-08-25] MEDS: tiZANidine 4 MG TAB PO SCH (20:21)
[2021-08-25 22:00] VITALS: BP 147/84
[2021-08-26] MEDS: HEPARIN SOD (PORCINE) 5000UNITS/ML 1ML VIAL/SYRINGE SQ SCH ×3 (05:29→21:03)
[2021-08-26] MEDS: MORPHINE 4 MG/ML 1ML VIAL/SYRINGE (J2270) IV PRN ×3 (05:33→20:55)
[2021-08-26 05:38] LABS: HEMOGLOBIN 13.2 g/dl (13.5-17.5); MEAN CORPUSCULAR HEMOGLOBIN 30.3 pg (27.0-33.0); MEAN CORPUSCULAR VOLUME 91.7 fl (80.0-96.0); PLATELET COUNT, AUTOMATED 220 10^3/uL (150-450); RED BLOOD COUNT 4.36 10^6/uL (4.30-6.10); WHITE BLOOD COUNT 12.2 10^3/uL (4.0-10.0)
[2021-08-26 06:00] LABS: CALCIUM LEVEL 8.9 MG/DL (8.8-10.2); CREATININE FOR GFR 1.52 MG/DL (0.70-1.30); MAGNESIUM LEVEL 2.3 MG/DL (1.8-2.4)
[2021-08-26] MEDS: SENOKOT S TAB PO SCH ×2 (09:00→21:00)
[2021-08-26] MEDS: SODIUM CHLORIDE 0.9% INJ 10 ML SYR IV SCH (09:28)
[2021-08-26] MEDS: cefTRIAXone SOD 1 GM in D5W MINI-BAG PLUS 50 ML IV SCH (11:15)
[2021-08-26] MEDS: SODIUM CHLORIDE 0.9% INJ 10 ML SYR IV PRN ×2 (12:03→21:03)
[2021-08-26 14:00] VITALS: BP 141/82
[2021-08-26] MEDS: PERCOCET 5MG/325MG TAB PO PRN (15:05)
[2021-08-26] MEDS ORDERED: SENN-52 PO (17:23)
[2021-08-26] MEDS: tiZANidine 4 MG TAB PO SCH (21:03)
[2021-08-26 22:00] VITALS: BP 124/45
[2021-08-27] MEDS: HEPARIN SOD (PORCINE) 5000UNITS/ML 1ML VIAL/SYRINGE SQ SCH (05:21)
[2021-08-27] MEDS: SODIUM CHLORIDE 0.9% INJ 10 ML SYR IV PRN (05:21)
[2021-08-27 05:36] LABS: BASO % 0.5 % (0.0-1.0); EOS # 0.1 10^3/uL (0.0-0.5); EOS % 1.4 % (0.0-3.0); HEMATOCRIT 33.8 % (42.0-52.0); LYMPH # 1.5 10^3/uL (1.5-5.0); LYMPH % 19.4 % (24.0-44.0); MEAN CORPUSCULAR HEMOGLOBIN 30.4 pg (27.0-33.0); MEAN CORPUSCULAR HGB CONC 32.8 g/dl (32.0-36.5); MEAN CORPUSCULAR VOLUME 92.6 fl (80.0-96.0); MONO % 34.6 % (2.0-8.0); NEUTROPHILS # 3.4 10^3/uL (1.5-8.5); NEUTROPHILS % 43.8 % (36.0-66.0); PLATELET COUNT, AUTOMATED 195 10^3/uL (150-450); RED BLOOD COUNT 3.65 10^6/uL (4.30-6.10); WHITE BLOOD COUNT 7.6 10^3/uL (4.0-10.0)
[2021-08-27 05:37] LABS: HEMOGLOBIN 11.1 g/dl (13.5-17.5); MONO # 2.6 10^3/uL (0.0-0.8)
[2021-08-27 06:00] VITALS: BP 120/54
[2021-08-27 06:04] LABS: ALT/SGPT 20 U/L (12-78); BILIRUBIN,TOTAL 0.6 MG/DL (0.2-1.0); BLOOD UREA NITROGEN 26 MG/DL (7-18); CALCIUM LEVEL 8.4 MG/DL (8.8-10.2); CARBON DIOXIDE LEVEL 30 MEQ/L (21-32); CHLORIDE LEVEL 109 MEQ/L (98-107); CREATININE FOR GFR 1.26 MG/DL (0.70-1.30); GLOMERULAR FILTRATION RATE > 60.0 (>49); GLUCOSE, FASTING 105 MG/DL (70-100); MAGNESIUM LEVEL 2.4 MG/DL (1.8-2.4); SODIUM LEVEL 141 MEQ/L (136-145)
[2021-08-27] MEDS: MORPHINE 4 MG/ML 1ML VIAL/SYRINGE (J2270) IV PRN (06:06)
[2021-08-27] MEDS: PERCOCET 5MG/325MG TAB PO PRN (07:24)
[2021-08-27] MEDS ORDERED: OXYC10TA12 PO (10:08)
[2021-08-27] MEDS ORDERED: PRED20TA PO (14:15)
== END 2021-08-27 07:39 | disposition home health service (06) | DRG 841 ==
LOC: M ED 14:04 → M ED INP 14:05 → M MS5PR 23:30 → OBSVTOIN 08-23 18:07
PROVIDERS: ADMIT Internal Medicine; ATTEND Internal Medicine
DX: C84.08 Mycosis fungoides, lymph nodes of multiple sites (principal); E87.2 Acidosis; Z79.899 Other long term (current) drug therapy; Z79.52 Long term (current) use of systemic steroids; N18.30 Chronic kidney disease, stage 3 unspecified

== ENCOUNTER 2021-08-23 13:10 | Outpatient (RCR) | payer OTHER ==
[~2021-08-23 13:10] MED LIST changes: +OXYC1TAB23 PO; +TIZA4CAP PO
[2021-08-26] MEDS ORDERED: SENN-52 PO (17:23)
[2021-08-27] MEDS ORDERED: OXYC10TA12 PO (10:08)
[2021-08-27] MEDS ORDERED: PRED20TA PO (14:15)
== END 2021-08-30 ==
LOC: M ONCR 13:10
PROVIDERS: ATTEND General Practice
DX: C84.09 Mycosis fungoides, extranodal and solid organ sites (principal)

== ENCOUNTER 2021-08-27 11:56 | Emergency (ER) | payer OTHER ==
[~2021-08-27] VITALS: Ht 177.8 cm; Wt 111.4 kg
[~2021-08-27 11:56] MED LIST changes: +OXYC10TA12 PO; +SENN-52 PO; +SODIUM CHLORIDE 0.9% INJ 10 ML SYR IV SCH
[2021-08-27 12:53] LABS: HEMATOCRIT 34.9 % (42.0-52.0); HEMOGLOBIN 11.6 g/dl (13.5-17.5); MEAN CORPUSCULAR HEMOGLOBIN 30.5 pg (27.0-33.0); MEAN CORPUSCULAR HGB CONC 33.2 g/dl (32.0-36.5); MEAN CORPUSCULAR VOLUME 91.8 fl (80.0-96.0); PLATELET COUNT, AUTOMATED 167 10^3/uL (150-450); WHITE BLOOD COUNT 10.5 10^3/uL (4.0-10.0)
[2021-08-27 13:17] LABS: ALBUMIN 3.3 GM/DL (3.2-5.2); BILIRUBIN,TOTAL 0.9 MG/DL (0.2-1.0); CALCIUM LEVEL 8.7 MG/DL (8.8-10.2); CREATININE FOR GFR 1.39 MG/DL (0.70-1.30); GLOMERULAR FILTRATION RATE 55.5 (>49); MAGNESIUM LEVEL 1.8 MG/DL (1.8-2.4); POTASSIUM SERUM 3.8 MEQ/L (3.5-5.1); TOTAL PROTEIN 6.2 GM/DL (6.4-8.2); URIC ACID 8.5 MG/DL (3.5-7.2)
[2021-08-27] MEDS ORDERED: PRED20TA PO (14:15)
[2021-08-27 14:30] VITALS: BP 144/82
[2021-08-28] MEDS ORDERED: SODIUM CHLORIDE 0.9% INJ 10 ML SYR IV SCH (09:00)
== END 2021-08-27 15:09 | disposition home or self-care (01) ==
LOC: M ED 11:56
DX: T50.905A Adverse effect of unspecified drugs, medicaments and biological substances, initial encounter (principal); R25.1 Tremor, unspecified; F17.200 Nicotine dependence, unspecified, uncomplicated; C84.00 Mycosis fungoides, unspecified site

== ENCOUNTER → 2021-08-31 | Outpatient (POV) | payer OTHER ==
[~2021-08-31] VITALS: Ht 177.8 cm; Wt 111.4 kg
[~2021-08-31] MED LIST changes: +PRED20TA PO; -SODIUM CHLORIDE 0.9% INJ 10 ML SYR IV SCH
[2021-08-31 13:30] VITALS: BP 151/79
== END ==
LOC: M IRPOV 13:02
PROVIDERS: ATTEND Radiology Diagnostic Radiology
DX: Z45.2 Encounter for adjustment and management of vascular access device (principal)

== ENCOUNTER → 2021-09-03 | Outpatient (CLI) | payer OTHER | LOC: M ONCR 07:36 | PROVIDERS: ATTEND General Practice | DX: C84.09 Mycosis fungoides, extranodal and solid organ sites (principal); L57.9 Skin changes due to chronic exposure to nonionizing radiation, unspecified ==

== ENCOUNTER → 2021-09-17 | Outpatient (CLI) | payer OTHER | LOC: M ONCR 07:46 | PROVIDERS: ATTEND General Practice | DX: C84.09 Mycosis fungoides, extranodal and solid organ sites (principal); L56.9 Acute skin change due to ultraviolet radiation, unspecified; Z92.3 Personal history of irradiation ==

== ENCOUNTER → 2021-10-08 | Outpatient (CLI) | payer OTHER ==
[~2021-10-08] MED LIST changes: +AMOX500C PO; +BACT800T5 PO; +NYST50SS PO
== END ==
LOC: M ONCR 07:53
PROVIDERS: ATTEND General Practice
DX: C84.09 Mycosis fungoides, extranodal and solid organ sites (principal); R21 Rash and other nonspecific skin eruption

== ENCOUNTER → 2021-11-05 | Outpatient (CLI) | payer OTHER ==
[~2021-11-05] MED LIST changes: +METH1CAP; +TERB250T91; +TORS10TA3 PO
== END ==
LOC: M ONCR 07:31
PROVIDERS: ATTEND General Practice
DX: C84.08 Mycosis fungoides, lymph nodes of multiple sites (principal); F17.210 Nicotine dependence, cigarettes, uncomplicated; R60.9 Edema, unspecified; Z79.899 Other long term (current) drug therapy; Z92.3 Personal history of irradiation

== ENCOUNTER 2021-11-24 15:10 | Outpatient (RCR) | payer OTHER | END 2021-11-30 | LOC: M ONCR 15:10 | PROVIDERS: ATTEND General Practice | DX: C84.09 Mycosis fungoides, extranodal and solid organ sites (principal) ==

== ENCOUNTER → 2021-12-10 | Outpatient (CLI) | payer OTHER | LOC: M ONCR 07:44 | PROVIDERS: ATTEND General Practice | DX: C84.09 Mycosis fungoides, extranodal and solid organ sites (principal); Z92.3 Personal history of irradiation; Z79.899 Other long term (current) drug therapy ==

== ENCOUNTER 2021-12-24 15:29 | Outpatient (RCR) | payer OTHER ==
[2021-12-29] MEDS ORDERED: PROC10TA5 PO (13:08)
[2021-12-29] MEDS ORDERED: ONDA-84 PO ×2 (13:08→16:56)
[2022-01-04] MEDS ORDERED: PRED20TA PO (14:10)
== END 2021-12-30 ==
LOC: M ONCR 15:29
PROVIDERS: ATTEND Radiology Radiation Oncology
DX: C84.09 Mycosis fungoides, extranodal and solid organ sites (principal)

== ENCOUNTER 2022-01-14 06:27 | Emergency (ER) | payer OTHER ==
[~2022-01-14] VITALS: Ht 177.8 cm; Wt 107.7 kg
[~2022-01-14 06:27] MED LIST changes: -METH1CAP; +METH1CAP PO; +ONDA-84 PO; +PROC10TA5 PO
[2022-01-14] MEDS ORDERED: dexameTHASONE 20MG/5ML VIAL (J1100 PER 1MG) IV ONE (08:45)
[2022-01-14 08:51] LABS: BASO # 0.1 10^3/uL (0.0-0.2); BASO % 1.1 % (0.0-1.0); EOS # 0.8 10^3/uL (0.0-0.5); EOS % 5.9 % (0.0-3.0); HEMATOCRIT 42.4 % (42.0-52.0); HEMOGLOBIN 14.5 g/dl (13.5-17.5); LYMPH # 0.8 10^3/uL (1.5-5.0); LYMPH % 5.9 % (24.0-44.0); MEAN CORPUSCULAR HEMOGLOBIN 30.1 pg (27.0-33.0); MEAN CORPUSCULAR HGB CONC 34.2 g/dl (32.0-36.5); MONO # 1.4 10^3/uL (0.0-0.8); MONO % 10.1 % (2.0-8.0); NEUTROPHILS # 10.1 10^3/uL (1.5-8.5); NEUTROPHILS % 75.7 % (36.0-66.0); PLATELET COUNT, AUTOMATED 258 10^3/uL (150-450); RED BLOOD COUNT 4.82 10^6/uL (4.30-6.10); WHITE BLOOD COUNT 13.3 10^3/uL (4.0-10.0)
[2022-01-14 08:59] LABS: CALCIUM LEVEL 9.7 MG/DL (8.8-10.2); CREATININE FOR GFR 1.44 MG/DL (0.70-1.30); GLOMERULAR FILTRATION RATE 53.1 (>49); POTASSIUM SERUM 3.8 MEQ/L (3.5-5.1)
[2022-01-14] MEDS ORDERED: DOXE10CA PO (10:23)
[2022-01-14] MEDS ORDERED: PRED10TA2 PO (10:23)
[2022-01-14 11:00] VITALS: BP 128/68
[2022-01-15] MEDS ORDERED: HYDR-3363 PO (15:21)
[2022-01-15] MEDS ORDERED: PRED10TA2 PO (15:21)
[2022-01-15] MEDS ORDERED: TIZA4CAP PO (15:21)
[2022-01-15] MEDS ORDERED: FLUT0.003 TOP (15:21)
== END 2022-01-14 11:18 | disposition home or self-care (01) ==
LOC: M ED 06:27
DX: T88.6XXA Anaphylactic reaction due to adverse effect of correct drug or medicament properly administered, initial encounter (principal); C84.09 Mycosis fungoides, extranodal and solid organ sites; F10.10 Alcohol abuse, uncomplicated; F17.200 Nicotine dependence, unspecified, uncomplicated; Z79.899 Other long term (current) drug therapy; Z92.21 Personal history of antineoplastic chemotherapy
CPT/HCPCS: 80048; 85025; 96374; 99284; J1100

== ENCOUNTER 2022-01-15 07:54 | Inpatient (IN) | payer OTHER ==
[~2022-01-15] VITALS: Ht 177.8 cm; Wt 108.1 kg
[~2022-01-15 07:54] MED LIST changes: +DOXE10CA PO; +PRED10TA2 PO
[2022-01-15] MEDS ORDERED: ACETAMINOPHEN TAB 650MG DOSE (2X325MG) PO PRN (13:50)
[2022-01-15] MEDS ORDERED: MOM 30ML SUSPENSION UDC PO PRN (13:50)
[2022-01-15] MEDS ORDERED: HEPARIN SOD (PORCINE) 5000UNITS/ML 1ML VIAL/SYRINGE SC SCH (14:00)
[2022-01-15] MEDS ORDERED: methylPREDNISolone 40MG 1ML VIAL IV SCH (14:00)
[2022-01-15 14:26] LABS: BASO # 0.1 10^3/uL (0.0-0.2); BASO % 0.5 % (0.0-1.0); EOS # 0.1 10^3/uL (0.0-0.5); EOS % 0.9 % (0.0-3.0); HEMATOCRIT 41.2 % (42.0-52.0); LYMPH # 0.9 10^3/uL (1.5-5.0); LYMPH % 5.6 % (24.0-44.0); MEAN CORPUSCULAR HEMOGLOBIN 29.7 pg (27.0-33.0); MEAN CORPUSCULAR VOLUME 87.5 fl (80.0-96.0); MONO # 0.7 10^3/uL (0.0-0.8); MONO % 4.8 % (2.0-8.0); NEUTROPHILS # 13.3 10^3/uL (1.5-8.5); PLATELET COUNT, AUTOMATED 254 10^3/uL (150-450); RED BLOOD COUNT 4.71 10^6/uL (4.30-6.10); WHITE BLOOD COUNT 15.3 10^3/uL (4.0-10.0)
[2022-01-15 14:46] LABS: ERYTHROCYTE SEDIMENTATION RATE 7 mm/hr (0-20)
[2022-01-15 14:58] LABS: ALBUMIN 3.5 GM/DL (3.2-5.2); BILIRUBIN,DIRECT 0.2 MG/DL (0.0-0.2); BILIRUBIN,TOTAL 0.3 MG/DL (0.2-1.0); C REACTIVE PROTEIN QUANTITATIV 0.46 MG/DL (0.00-0.30); CALCIUM LEVEL 9.8 MG/DL (8.8-10.2); CREATININE FOR GFR 1.36 MG/DL (0.70-1.30); GLOMERULAR FILTRATION RATE 56.7 (>49); POTASSIUM SERUM 4.1 MEQ/L (3.5-5.1); TOTAL PROTEIN 6.7 GM/DL (6.4-8.2)
[2022-01-15] MEDS ORDERED: NS 1,000 ML IV ONE (15:05)
[2022-01-15] MEDS ORDERED: NS 1,000 ML IV SCH (15:05)
[2022-01-15] MEDS ORDERED: HYDR-3363 PO (15:21)
[2022-01-15] MEDS ORDERED: PRED10TA2 PO (15:21)
[2022-01-15] MEDS ORDERED: TIZA4CAP PO (15:21)
[2022-01-15] MEDS ORDERED: FLUT0.003 TOP (15:21)
[2022-01-15] MEDS ORDERED: HOME MED LIST COMPLETE! XX SCH (15:25)
[2022-01-15] MEDS ORDERED: TRIAMCINOLONE ACET 0.1% OINTMENT 80 GM TOP SCH (16:00)
[2022-01-15] MEDS ORDERED: diphenhydrAMINE 50MG/ML VIAL (J1200) IV PRN (16:35)
[2022-01-15] MEDS ORDERED: tiZANidine 4 MG TAB PO PRN (16:35)
[2022-01-15 16:56] VITALS: BP 134/62
[2022-01-15 17:53] LABS: CK-MB VALUE MASS 1.2 NG/ML (<3.6); MB/CK RELATIVE INDEX 4.62 (< OR =4)
== END 2022-01-15 20:00 | disposition left against medical advice (07) | DRG 607 ==
LOC: M ED 07:54 → UNDOADMIN 17:14 → M ED INP 17:14 → ENRESERV 19:59 → CANRESERV 19:59 → M ED 20:15
PROVIDERS: ADMIT Internal Medicine; ATTEND Internal Medicine
DX: R21 Rash and other nonspecific skin eruption (principal); C84.00 Mycosis fungoides, unspecified site; T45.1X5A Adverse effect of antineoplastic and immunosuppressive drugs, initial encounter; F17.200 Nicotine dependence, unspecified, uncomplicated; Z20.822 Contact with and (suspected) exposure to COVID-19; Z79.52 Long term (current) use of systemic steroids; Z79.899 Other long term (current) drug therapy

== ENCOUNTER → 2022-01-20 | Outpatient (CLI) | payer OTHER ==
[~2022-01-20] MED LIST changes: +CYMB1CAP5 PO; +DEXA2TA PO; +FLUT0.003 TOP; +HYDR-3363 PO
== END ==
LOC: M ONCR 07:49
PROVIDERS: ATTEND General Practice
DX: L53.9 Erythematous condition, unspecified (principal); R21 Rash and other nonspecific skin eruption; Z92.3 Personal history of irradiation

== ENCOUNTER → 2022-01-21 | Outpatient (CLI) | payer OTHER | LOC: M EKG 15:11 | PROVIDERS: ATTEND Specialist | DX: C84.00 Mycosis fungoides, unspecified site (principal) ==

== ENCOUNTER → 2022-02-04 | Outpatient (CLI) | payer OTHER | LOC: M EKG 15:01 | PROVIDERS: ATTEND Specialist | DX: C84.00 Mycosis fungoides, unspecified site (principal) ==

== ENCOUNTER 2022-03-01 11:52 | Emergency (ER) | payer OTHER ==
[~2022-03-01] VITALS: Ht 177.8 cm; Wt 105.3 kg
[2022-03-01 11:53] VITALS: BP 135/80
[2022-03-01] MEDS ORDERED: GABA-282 PO (12:02)
[2022-03-01] MEDS ORDERED: TERB250T91 PO (12:02)
== END 2022-03-01 16:19 | disposition left against medical advice (07) ==
LOC: M ED 11:52
DX: Z53.21 Procedure and treatment not carried out due to patient leaving prior to being seen by health care provider (principal)

== ENCOUNTER 2022-03-02 08:41 | Inpatient (IN) | payer OTHER ==
[~2022-03-02] VITALS: Ht 182.9 cm; Wt 109.5 kg
[~2022-03-02 08:41] MED LIST changes: -ACET32TAB PO; -Clobetasol Propionate 0.05% TOP; -DOXY-350 PO; -OXYC-403 PO; -OXYC-517 PO; -RAME8TAB2 PO; -SANT250O8 TOP; -VANI1CRE5 TOP
[2022-03-02] MEDS ORDERED: PERCOCET 5MG/325MG TAB PO ONE (10:00)
[2022-03-02] MEDS ORDERED: MORPHINE 4 MG/ML 1ML VIAL/SYRINGE IV ONE (10:15)
[2022-03-02 11:22] LABS: BASO # 0.1 10^3/uL (0.0-0.2); BASO % 0.7 % (0.0-1.0); EOS # 0.5 10^3/uL (0.0-0.5); EOS % 3.6 % (0.0-3.0); HEMATOCRIT 37.6 % (42.0-52.0); HEMOGLOBIN 12.9 g/dl (13.5-17.5); LYMPH # 2.9 10^3/uL (1.5-5.0); LYMPH % 22.1 % (24.0-44.0); MEAN CORPUSCULAR HEMOGLOBIN 29.7 pg (27.0-33.0); MEAN CORPUSCULAR HGB CONC 34.3 g/dl (32.0-36.5); MEAN CORPUSCULAR VOLUME 86.6 fl (80.0-96.0); MONO # 1.3 10^3/uL (0.0-0.8); NEUTROPHILS # 8.1 10^3/uL (1.5-8.5); NEUTROPHILS % 61.8 % (36.0-66.0); PLATELET COUNT, AUTOMATED 119 10^3/uL (150-450); RED BLOOD COUNT 4.34 10^6/uL (4.30-6.10); WHITE BLOOD COUNT 13.2 10^3/uL (4.0-10.0)
[2022-03-02 11:52] LABS: ALBUMIN 2.9 GM/DL (3.2-5.2); BILIRUBIN,TOTAL 0.3 MG/DL (0.2-1.0); C REACTIVE PROTEIN QUANTITATIV 3.08 MG/DL (0.00-0.30); CALCIUM LEVEL 8.4 MG/DL (8.8-10.2); CREATININE FOR GFR 1.83 MG/DL (0.70-1.30); GLOMERULAR FILTRATION RATE 40.3 (>49); POTASSIUM SERUM 3.8 MEQ/L (3.5-5.1); TOTAL PROTEIN 5.9 GM/DL (6.4-8.2)
[2022-03-02 12:19] LABS: RSV AMPLIFICATION NEGATIVE (NEGATIVE)
[2022-03-02] MEDS ORDERED: LR 1,000 ML IV ONE ×2 (13:50→14:10)
[2022-03-02] MEDS ORDERED: MORPHINE 4 MG/ML 1ML VIAL/SYRINGE IV PRN (14:25)
[2022-03-02] MEDS: LR 1,000 ML IV SCH ×2 (15:29→20:57)
[2022-03-02] MEDS ORDERED: HOME MED LIST COMPLETE! XX SCH (15:35)
[2022-03-02] MEDS ORDERED: VANCOMYCIN HCL IV SCH (17:40)
[2022-03-02] MEDS ORDERED: FLUID PLACE HOLDER IV SCH (17:40)
[2022-03-02] MEDS: oxyCODONE 5MG TAB PO PRN (18:24)
[2022-03-02] MEDS: ACETAMINOPHEN 325 MG TAB PO SCH (18:24)
[2022-03-02] MEDS: CEFEPIME HCL 2 GM in D5W MINI-BAG PLUS 50 ML IV SCH (20:18)
[2022-03-02 20:41] VITALS: BP 152/82
[2022-03-02] MEDS: HALOBETASOL PROPION 0.05% OINT 15 GM TOP SCH (21:00)
[2022-03-02] MEDS: VANICREAM MOISTURIZING SKIN CREAM 113GM TUBE TOP SCH (21:00)
[2022-03-02] MEDS ORDERED: SODIUM CHLORIDE 0.9% INJ 10 ML SYR IV PRN (21:55)
[2022-03-02] MEDS ORDERED: HYDROMORPHONE HCL 0.5 MG/ 0.5 ML SYRINGE (J1170 PER 1) IV ONE (22:00)
[2022-03-02] MEDS ORDERED: PRAMIPEXOLE 0.25 MG TAB PO ONE (22:00)
[2022-03-02] MEDS: metroNIDAZOLE 500 MG in IV 1 EA IV SCH (22:37)
[2022-03-02] MEDS ORDERED: VANCOMYCIN HCL 1,000 MG, VIAL MATE ADAPTER 1 EACH in NS 250 ML IV ONE (23:00)
[2022-03-03] MEDS ORDERED: VANCOMYCIN HCL 1,000 MG, VIAL MATE ADAPTER 1 EACH in NS 250 ML IV ONE ×3
[2022-03-03] MEDS: ACETAMINOPHEN 325 MG TAB PO SCH ×4 (00:06→18:07)
[2022-03-03] MEDS: LR 1,000 ML IV SCH ×5 (04:37→21:18)
[2022-03-03] MEDS: metroNIDAZOLE 500 MG in IV 1 EA IV SCH ×3 (04:38→21:18)
[2022-03-03 06:00] VITALS: BP 173/89
[2022-03-03] MEDS: oxyCODONE 5MG TAB PO PRN (06:30)
[2022-03-03 07:08] LABS: CALCIUM LEVEL 8.7 MG/DL (8.8-10.2); CREATININE FOR GFR 1.5 MG/DL (0.70-1.30); GLOMERULAR FILTRATION RATE 50.7 (>49); POTASSIUM SERUM 3.8 MEQ/L (3.5-5.1)
[2022-03-03] MEDS: SODIUM CHLORIDE 0.9% INJ 10 ML SYR IV SCH (09:00)
[2022-03-03] MEDS: CEFEPIME HCL 2 GM in D5W MINI-BAG PLUS 50 ML IV SCH ×2 (09:07→19:42)
[2022-03-03 09:08] LABS: HEMATOCRIT 37.6 % (42.0-52.0); HEMOGLOBIN 12.2 g/dl (13.5-17.5); MEAN CORPUSCULAR HGB CONC 32.4 g/dl (32.0-36.5); MEAN CORPUSCULAR VOLUME 89.3 fl (80.0-96.0); PLATELET COUNT, AUTOMATED 142 10^3/uL (150-450); RED BLOOD COUNT 4.21 10^6/uL (4.30-6.10); WHITE BLOOD COUNT 8.2 10^3/uL (4.0-10.0)
[2022-03-03] MEDS: VANICREAM MOISTURIZING SKIN CREAM 113GM TUBE TOP SCH ×2 (09:08→21:00)
[2022-03-03] MEDS: HALOBETASOL PROPION 0.05% OINT 15 GM TOP SCH (09:09)
[2022-03-03] MEDS: ENOXAPARIN 40MG/0.4ML SYRINGE (J1650 PER 10MG) SC SCH (09:20)
[2022-03-03] MEDS ORDERED: VANCOMYCIN HCL 750 MG, VIAL MATE ADAPTER 1 EACH in D5W 250 ML IV SCH ×2 (13:00→14:00)
[2022-03-03] MEDS ORDERED: oxyCODONE 5MG TAB PO PRN (13:05)
[2022-03-03 14:00] VITALS: BP 128/70
[2022-03-03] MEDS: CLOBETASOL PROP 0.05% OINT 30 GM TOP SCH (21:00)
[2022-03-03] MEDS: oxyCODONE 10 MG CR TAB PO SCH (21:17)
[2022-03-03] MEDS ORDERED: RAMELTEON 8 MG TAB (ROZEREM) PO PRN (21:30)
[2022-03-03 22:00] VITALS: BP 112/58
[2022-03-04] MEDS: ACETAMINOPHEN 325 MG TAB PO SCH ×4 (00:29→18:00)
[2022-03-04] MEDS: LR 1,000 ML IV SCH (03:36)
[2022-03-04] MEDS: metroNIDAZOLE 500 MG in IV 1 EA IV SCH ×2 (05:25→12:33)
[2022-03-04 05:37] LABS: BASO # 0.1 10^3/uL (0.0-0.2); BASO % 1.1 % (0.0-1.0); EOS % 0.3 % (0.0-3.0); HEMATOCRIT 33.7 % (42.0-52.0); HEMOGLOBIN 11.2 g/dl (13.5-17.5); LYMPH # 2.4 10^3/uL (1.5-5.0); LYMPH % 36.1 % (24.0-44.0); MEAN CORPUSCULAR HEMOGLOBIN 29.6 pg (27.0-33.0); MEAN CORPUSCULAR HGB CONC 33.2 g/dl (32.0-36.5); MEAN CORPUSCULAR VOLUME 89.2 fl (80.0-96.0); MONO # 0.8 10^3/uL (0.0-0.8); MONO % 11.5 % (2.0-8.0); NEUTROPHILS # 3.3 10^3/uL (1.5-8.5); NEUTROPHILS % 49.6 % (36.0-66.0); PLATELET COUNT, AUTOMATED 152 10^3/uL (150-450); RED BLOOD COUNT 3.78 10^6/uL (4.30-6.10); WHITE BLOOD COUNT 6.6 10^3/uL (4.0-10.0)
[2022-03-04 06:00] VITALS: BP 111/60
[2022-03-04 06:05] LABS: BLOOD UREA NITROGEN 21 MG/DL (7-18); CALCIUM LEVEL 8.5 MG/DL (8.8-10.2); CARBON DIOXIDE LEVEL 23 MEQ/L (21-32); CHLORIDE LEVEL 107 MEQ/L (98-107); GLOMERULAR FILTRATION RATE > 60.0 (>49); GLUCOSE, FASTING 91 MG/DL (70-100); POTASSIUM SERUM 4.1 MEQ/L (3.5-5.1); SODIUM LEVEL 138 MEQ/L (136-145)
[2022-03-04] MEDS: CEFEPIME HCL 2 GM in D5W MINI-BAG PLUS 50 ML IV SCH (08:46)
[2022-03-04] MEDS: CLOBETASOL PROP 0.05% OINT 30 GM TOP SCH (08:47)
[2022-03-04] MEDS: oxyCODONE 10 MG CR TAB PO SCH (08:47)
[2022-03-04] MEDS: ENOXAPARIN 40MG/0.4ML SYRINGE (J1650 PER 10MG) SC SCH (08:47)
[2022-03-04] MEDS: VANICREAM MOISTURIZING SKIN CREAM 113GM TUBE TOP SCH (08:48)
[2022-03-04] MEDS ORDERED: SANTYL OINT 30GM TOP SCH (09:00)
[2022-03-04] MEDS: SODIUM CHLORIDE 0.9% INJ 10 ML SYR IV SCH (09:00)
[2022-03-04] MEDS ORDERED: VANCOMYCIN HCL 1,000 MG, VIAL MATE ADAPTER 1 EACH in D5W 250 ML IV SCH (13:00)
[2022-03-04 14:00] VITALS: BP 132/71
[2022-03-04] MEDS ORDERED: DOXY-350 PO (19:03)
[2022-03-04] MEDS ORDERED: SANT250O8 TOP (19:03)
[2022-03-04] MEDS ORDERED: OXYC-403 PO (19:03)
[2022-03-04] MEDS ORDERED: VANI1CRE5 TOP (19:03)
[2022-03-04] MEDS ORDERED: OXYC-517 PO (19:03)
[2022-03-04] MEDS ORDERED: RAME8TAB2 PO (19:03)
[2022-03-04] MEDS ORDERED: Clobetasol Propionate 0.05% TOP (19:03)
[2022-03-04] MEDS ORDERED: ACET32TAB PO (19:03)
[2022-03-05] MEDS ORDERED: MIRA3350 PO (11:11)
[2022-03-05] MEDS ORDERED: META0.52 PO (11:11)
[2022-03-05] MEDS ORDERED: SENN-83 PO (11:11)
== END 2022-03-04 20:00 | disposition home or self-care (01) | DRG 872 ==
LOC: M ED 08:41 → M ED INP 14:09 → EEVIPCON 14:09 → ENRESERVDT 19:34 → ENRESERVTM 19:34 → M MS5PR 20:40
PROVIDERS: ADMIT Student in an Organized Health Care Education/Training Program; ATTEND Student in an Organized Health Care Education/Training Program
DX: A41.9 Sepsis, unspecified organism (principal); C84.05 Mycosis fungoides, lymph nodes of inguinal region and lower limb; E87.2 Acidosis; N17.9 Acute kidney failure, unspecified; L03.115 Cellulitis of right lower limb; L03.116 Cellulitis of left lower limb; Z92.3 Personal history of irradiation; B95.62 Methicillin resistant Staphylococcus aureus infection as the cause of diseases classified elsewhere; Z79.899 Other long term (current) drug therapy; F17.200 Nicotine dependence, unspecified, uncomplicated

== ENCOUNTER → 2022-03-02 | Outpatient (CLI) | payer OTHER ==
[~2022-03-02] MED LIST changes: +ACET32TAB PO; +Clobetasol Propionate 0.05% TOP; +DOXY-350 PO; +GABA-282 PO; +OXYC-403 PO; +OXYC-517 PO; +RAME8TAB2 PO; +SANT250O8 TOP; +TERB250T91 PO; +VANI1CRE5 TOP
== END ==
LOC: M ONCR 07:54
PROVIDERS: ATTEND General Practice
DX: L53.9 Erythematous condition, unspecified (principal); R21 Rash and other nonspecific skin eruption; Z92.3 Personal history of irradiation; F17.210 Nicotine dependence, cigarettes, uncomplicated

== ENCOUNTER 2022-03-14 13:47 | Inpatient (IN) | payer OTHER ==
[~2022-03-14] VITALS: Ht 177.8 cm; Wt 110.9 kg
[2022-03-14] MEDS: SODIUM CHLORIDE 0.9% INJ 10 ML SYR IV SCH (09:00)
[~2022-03-14 13:47] MED LIST changes: +ACET32TAB PO; +Clobetasol Propionate 0.05% TOP; +DOXY-350 PO; +META0.52 PO; +MIRA3350 PO; +OXYC-403 PO; +OXYC-404 PO; +OXYC-517 PO; +RAME8TAB2 PO; +SANT250O8 TOP; +SENN-83 PO; +VANI1CRE5 TOP
[2022-03-14 14:00] VITALS: BP 118/57
[2022-03-14] MEDS ORDERED: ONDANSETRON 4MG 2ML VIAL IV PRN (15:00)
[2022-03-14] MEDS ORDERED: ACETAMINOPHEN TAB 650MG DOSE (2X325MG) PO PRN (15:00)
[2022-03-14] MEDS ORDERED: MOM 30ML SUSPENSION UDC PO PRN (15:50)
[2022-03-14] MEDS ORDERED: MORPHINE 2 MG/ML 1ML VIAL IV PRN (15:50)
[2022-03-14] MEDS: NS 1,000 ML IV SCH (17:36)
[2022-03-14] MEDS ORDERED: MIRA3350 PO (17:52)
[2022-03-14] MEDS ORDERED: ROZE8TAB16 PO (17:52)
[2022-03-14] MEDS ORDERED: VITA100093 PO (17:52)
[2022-03-14] MEDS ORDERED: SANT250O8 TOP (17:54)
[2022-03-14] MEDS ORDERED: HOME MED LIST COMPLETE! XX SCH (17:55)
[2022-03-14 18:11] LABS: INR 1.07; PROTHROMBIN TIME 14.3 SECONDS (12.7-14.5)
[2022-03-14] MEDS: SENNA 8.6 MG TAB (SENOKOT) PO SCH (20:06)
[2022-03-14] MEDS: RAMELTEON 8 MG TAB (ROZEREM) PO SCH (20:06)
[2022-03-14] MEDS: DOCUSATE SODIUM 100MG CAPSULE PO SCH (20:06)
[2022-03-14] MEDS: HEPARIN SOD (PORCINE) 5000UNITS/ML 1ML VIAL/SYRINGE SQ SCH (20:08)
[2022-03-14] MEDS: MORPHINE 4 MG/ML 1ML VIAL/SYRINGE IV PRN (20:23)
[2022-03-14 22:27] VITALS: BP 117/57
[2022-03-14] MEDS: SODIUM CHLORIDE 0.9% INJ 10 ML SYR IV PRN (23:49)
[2022-03-15] MEDS: MORPHINE 4 MG/ML 1ML VIAL/SYRINGE IV PRN ×5 (00:30→20:51)
[2022-03-15] MEDS: NS 1,000 ML IV SCH ×3 (00:57→15:04)
[2022-03-15] MEDS ORDERED: MORPHINE 2 MG/ML 1ML VIAL IV ONE (02:00)
[2022-03-15 06:04] LABS: HEMATOCRIT 30.3 % (42.0-52.0); HEMOGLOBIN 9.8 g/dl (13.5-17.5); MEAN CORPUSCULAR HEMOGLOBIN 29.7 pg (27.0-33.0); MEAN CORPUSCULAR HGB CONC 32.3 g/dl (32.0-36.5); MEAN CORPUSCULAR VOLUME 91.8 fl (80.0-96.0); PLATELET COUNT, AUTOMATED 283 10^3/uL (150-450); WHITE BLOOD COUNT 7.6 10^3/uL (4.0-10.0)
[2022-03-15 06:14] VITALS: BP 124/86
[2022-03-15 06:43] LABS: ALBUMIN 2.1 GM/DL (3.2-5.2); BILIRUBIN,TOTAL 0.6 MG/DL (0.2-1.0); CALCIUM LEVEL 7.8 MG/DL (8.8-10.2); CREATININE FOR GFR 1.75 MG/DL (0.70-1.30); GLOMERULAR FILTRATION RATE 42.4 (>49); POTASSIUM SERUM 4.3 MEQ/L (3.5-5.1); TOTAL PROTEIN 4.7 GM/DL (6.4-8.2)
[2022-03-15] MEDS: SODIUM CHLORIDE 0.9% INJ 10 ML SYR IV SCH (09:00)
[2022-03-15] MEDS ORDERED: NS 500 ML IV ONE (11:10)
[2022-03-15] MEDS: DOCUSATE SODIUM 100MG CAPSULE PO SCH ×2 (11:15→20:50)
[2022-03-15] MEDS: HEPARIN SOD (PORCINE) 5000UNITS/ML 1ML VIAL/SYRINGE SQ SCH ×2 (11:15→20:50)
[2022-03-15] MEDS: SANTYL OINT 30GM TOP SCH (15:05)
[2022-03-15] MEDS: RAMELTEON 8 MG TAB (ROZEREM) PO SCH (20:50)
[2022-03-15] MEDS: SENNA 8.6 MG TAB (SENOKOT) PO SCH (20:50)
[2022-03-16] MEDS: MORPHINE 4 MG/ML 1ML VIAL/SYRINGE IV PRN ×6 (00:10→23:56)
[2022-03-16] MEDS: NS 1,000 ML IV SCH ×2 (00:12→08:03)
[2022-03-16 05:30] LABS: HEMATOCRIT 30.7 % (42.0-52.0); HEMOGLOBIN 10.1 g/dl (13.5-17.5); MEAN CORPUSCULAR HEMOGLOBIN 30.8 pg (27.0-33.0); MEAN CORPUSCULAR HGB CONC 32.9 g/dl (32.0-36.5); MEAN CORPUSCULAR VOLUME 93.6 fl (80.0-96.0); PLATELET COUNT, AUTOMATED 319 10^3/uL (150-450); RED BLOOD COUNT 3.28 10^6/uL (4.30-6.10); WHITE BLOOD COUNT 8.3 10^3/uL (4.0-10.0)
[2022-03-16 06:03] LABS: ALBUMIN 2.1 GM/DL (3.2-5.2); BILIRUBIN,TOTAL 0.7 MG/DL (0.2-1.0); CREATININE FOR GFR 1.64 MG/DL (0.70-1.30); GLOMERULAR FILTRATION RATE 45.7 (>49); POTASSIUM SERUM 4.5 MEQ/L (3.5-5.1)
[2022-03-16] MEDS: SODIUM CHLORIDE 0.9% INJ 10 ML SYR IV SCH (08:32)
[2022-03-16] MEDS: CICLOPIROX TOP SCH ×2 (08:41→20:28)
[2022-03-16] MEDS: DOCUSATE SODIUM 100MG CAPSULE PO SCH ×2 (08:42→20:25)
[2022-03-16] MEDS: HEPARIN SOD (PORCINE) 5000UNITS/ML 1ML VIAL/SYRINGE SQ SCH ×2 (08:42→20:27)
[2022-03-16] MEDS ORDERED: FUROSEMIDE 20MG/2ML VIAL (J1940) IV ONE (13:15)
[2022-03-16] MEDS: SODIUM CHLORIDE 0.9% INJ 10 ML SYR IV PRN ×3 (13:47→23:57)
[2022-03-16 14:00] VITALS: BP 148/89
[2022-03-16] MEDS: RAMELTEON 8 MG TAB (ROZEREM) PO SCH (20:25)
[2022-03-16] MEDS: SENNA 8.6 MG TAB (SENOKOT) PO SCH (20:27)
[2022-03-16] MEDS: BACITRACIN OINTMENT 30GM TUBE TOP SCH (20:29)
[2022-03-16] MEDS ORDERED: MINERAL OIL AU ONE (21:00)
[2022-03-16] MEDS ORDERED: MINERAL OIL 473ML BTL AU SCH (21:00)
[2022-03-16 22:56] VITALS: BP 125/68
[2022-03-17] MEDS: MORPHINE 4 MG/ML 1ML VIAL/SYRINGE IV PRN ×6 (04:57→21:50)
[2022-03-17] MEDS: SODIUM CHLORIDE 0.9% INJ 10 ML SYR IV PRN ×5 (04:58→21:51)
[2022-03-17 05:38] LABS: HEMATOCRIT 32.4 % (42.0-52.0); HEMOGLOBIN 10.3 g/dl (13.5-17.5); MEAN CORPUSCULAR HEMOGLOBIN 29.7 pg (27.0-33.0); MEAN CORPUSCULAR HGB CONC 31.8 g/dl (32.0-36.5); MEAN CORPUSCULAR VOLUME 93.4 fl (80.0-96.0); PLATELET COUNT, AUTOMATED 312 10^3/uL (150-450); RED BLOOD COUNT 3.47 10^6/uL (4.30-6.10); WHITE BLOOD COUNT 8.8 10^3/uL (4.0-10.0)
[2022-03-17 06:00] VITALS: BP 150/91
[2022-03-17 06:24] LABS: ALBUMIN 2.3 GM/DL (3.2-5.2); BILIRUBIN,TOTAL 0.8 MG/DL (0.2-1.0); CALCIUM LEVEL 8.5 MG/DL (8.8-10.2); CREATININE FOR GFR 1.66 MG/DL (0.70-1.30); GLOMERULAR FILTRATION RATE 45.1 (>49); MAGNESIUM LEVEL 2.1 MG/DL (1.8-2.4); POTASSIUM SERUM 4.4 MEQ/L (3.5-5.1); TOTAL PROTEIN 5.3 GM/DL (6.4-8.2)
[2022-03-17] MEDS: SODIUM CHLORIDE 0.9% INJ 10 ML SYR IV SCH ×2 (08:10→09:25)
[2022-03-17] MEDS: CLOBETASOL PROPIONATE EMOLLIENT 0.05% CR 60 GM TOP SCH ×2 (09:00→21:00)
[2022-03-17] MEDS: HEPARIN SOD (PORCINE) 5000UNITS/ML 1ML VIAL/SYRINGE SQ SCH ×2 (09:23→21:27)
[2022-03-17] MEDS: CICLOPIROX TOP SCH ×2 (09:23→21:00)
[2022-03-17] MEDS: DOCUSATE SODIUM 100MG CAPSULE PO SCH ×2 (09:23→21:26)
[2022-03-17] MEDS: SANTYL OINT 30GM TOP SCH (09:26)
[2022-03-17] MEDS ORDERED: FUROSEMIDE 20MG/2ML VIAL (J1940) IV ONE (09:55)
[2022-03-17 14:00] VITALS: BP 147/88
[2022-03-17] MEDS: DIMETHICONE 2% OINTMENT(VANICREAM) 70GM TUBE TOP SCH ×2 (14:05→21:00)
[2022-03-17] MEDS: SENNA 8.6 MG TAB (SENOKOT) PO SCH (21:00)
[2022-03-17 21:24] VITALS: BP 139/82
[2022-03-17] MEDS: RAMELTEON 8 MG TAB (ROZEREM) PO SCH (21:26)
[2022-03-17] MEDS: BACITRACIN OINTMENT 30GM TUBE TOP SCH (21:27)
[2022-03-18 04:30] VITALS: BP 137/77
[2022-03-18] MEDS: MORPHINE 4 MG/ML 1ML VIAL/SYRINGE IV PRN ×4 (05:05→20:25)
[2022-03-18] MEDS: SODIUM CHLORIDE 0.9% INJ 10 ML SYR IV PRN (05:05)
[2022-03-18 05:42] LABS: HEMATOCRIT 31.3 % (42.0-52.0); MEAN CORPUSCULAR HEMOGLOBIN 29.8 pg (27.0-33.0); MEAN CORPUSCULAR HGB CONC 31.9 g/dl (32.0-36.5); MEAN CORPUSCULAR VOLUME 93.2 fl (80.0-96.0); PLATELET COUNT, AUTOMATED 260 10^3/uL (150-450); RED BLOOD COUNT 3.36 10^6/uL (4.30-6.10); WHITE BLOOD COUNT 7.7 10^3/uL (4.0-10.0)
[2022-03-18 06:23] LABS: ALBUMIN 2.4 GM/DL (3.2-5.2); BILIRUBIN,TOTAL 0.7 MG/DL (0.2-1.0); CALCIUM LEVEL 8.4 MG/DL (8.8-10.2); CREATININE FOR GFR 2.06 MG/DL (0.70-1.30); GLOMERULAR FILTRATION RATE 35.1 (>49); MAGNESIUM LEVEL 2.2 MG/DL (1.8-2.4); POTASSIUM SERUM 4.5 MEQ/L (3.5-5.1); TOTAL PROTEIN 5.4 GM/DL (6.4-8.2)
[2022-03-18] MEDS ORDERED: SODIUM CHLORIDE 0.9% 1000ML IV ONE (08:10)
[2022-03-18] MEDS: DOCUSATE SODIUM 100MG CAPSULE PO SCH ×2 (08:39→20:25)
[2022-03-18] MEDS: HEPARIN SOD (PORCINE) 5000UNITS/ML 1ML VIAL/SYRINGE SQ SCH ×2 (08:39→20:25)
[2022-03-18] MEDS: SODIUM CHLORIDE 0.9% INJ 10 ML SYR IV SCH (08:40)
[2022-03-18] MEDS: DIMETHICONE 2% OINTMENT(VANICREAM) 70GM TUBE TOP SCH ×2 (08:40→20:24)
[2022-03-18] MEDS: CLOBETASOL PROPIONATE EMOLLIENT 0.05% CR 60 GM TOP SCH ×2 (08:40→20:24)
[2022-03-18] MEDS: CICLOPIROX TOP SCH ×2 (08:44→20:24)
[2022-03-18 14:00] VITALS: BP 139/74
[2022-03-18 14:00] LABS: APPEARANCE, URINE MANUAL CLOUDY (CLEAR); BILIRUBIN, URINE MANUAL NEGATIVE (NEGATIVE); BLOOD URINE MANUAL NEGATIVE (NEGATIVE); COLOR, URINE MANUAL AMBER (YELLOW); GLUCOSE, URINE (UA) MANUAL NEGATIVE (NEGATIVE); KETONE, URINE MANUAL NEGATIVE (NEGATIVE); LEUKOCYTE ESTERASE, URINE MAN NEGATIVE (NEGATIVE); NITRITE, URINE MANUAL NEGATIVE (NEGATIVE); PROTEIN, URINE MANUAL NEGATIVE (NEGATIVE); UROBILINOGEN, URINE MANUAL NORMAL (NORMAL)
[2022-03-18] MEDS: FUROSEMIDE injection 250 MG in D5W 225 ML IV SCH (14:08)
[2022-03-18 14:15] LABS: AMORPHOUS SEDIMENT, URINE LARGE AMOUNT (NEGATIVE); BACTERIA, URINE NONE SEEN; HYALINE CAST, URINE NONE SEEN /lpf (0-1); RBC, URINE NONE SEEN /hpf (0-3); SQUAMOUS EPITHELIAL CELL URINE SMALL AMOUNT /hpf (SMALL AMT); WBC, URINE 0-1 /hpf (0-3)
[2022-03-18 20:00] VITALS: BP 140/75
[2022-03-18] MEDS: SENNA 8.6 MG TAB (SENOKOT) PO SCH (20:24)
[2022-03-18] MEDS: BACITRACIN OINTMENT 30GM TUBE TOP SCH (20:25)
[2022-03-18] MEDS: RAMELTEON 8 MG TAB (ROZEREM) PO SCH (20:26)
[2022-03-19] MEDS: MORPHINE 4 MG/ML 1ML VIAL/SYRINGE IV PRN ×4 (05:47→21:55)
[2022-03-19 05:58] VITALS: BP 125/69
[2022-03-19 06:40] LABS: HEMATOCRIT 30.4 % (42.0-52.0); MEAN CORPUSCULAR HEMOGLOBIN 30.3 pg (27.0-33.0); MEAN CORPUSCULAR HGB CONC 32.9 g/dl (32.0-36.5); MEAN CORPUSCULAR VOLUME 92.1 fl (80.0-96.0); PLATELET COUNT, AUTOMATED 243 10^3/uL (150-450); WHITE BLOOD COUNT 6.7 10^3/uL (4.0-10.0)
[2022-03-19 07:26] LABS: ALBUMIN 2.4 GM/DL (3.2-5.2); BILIRUBIN,TOTAL 0.7 MG/DL (0.2-1.0); CALCIUM LEVEL 8.5 MG/DL (8.8-10.2); CREATININE FOR GFR 1.94 MG/DL (0.70-1.30); GLOMERULAR FILTRATION RATE 37.6 (>49); MAGNESIUM LEVEL 2.2 MG/DL (1.8-2.4); POTASSIUM SERUM 3.9 MEQ/L (3.5-5.1); TOTAL PROTEIN 5.5 GM/DL (6.4-8.2)
[2022-03-19] MEDS: CLOBETASOL PROPIONATE EMOLLIENT 0.05% CR 60 GM TOP SCH ×2 (09:00→21:00)
[2022-03-19] MEDS: SODIUM CHLORIDE 0.9% INJ 10 ML SYR IV SCH (09:00)
[2022-03-19] MEDS: CICLOPIROX TOP SCH ×2 (09:00→21:00)
[2022-03-19] MEDS: DIMETHICONE 2% OINTMENT(VANICREAM) 70GM TUBE TOP SCH ×2 (09:00→21:00)
[2022-03-19] MEDS: HEPARIN SOD (PORCINE) 5000UNITS/ML 1ML VIAL/SYRINGE SQ SCH ×2 (09:52→21:38)
[2022-03-19] MEDS: DOCUSATE SODIUM 100MG CAPSULE PO SCH ×2 (09:53→21:38)
[2022-03-19] MEDS ORDERED: POTASSIUM CHLORIDE 10MEQ SR TABLET PO ONE (12:15)
[2022-03-19 14:00] VITALS: BP 127/70
[2022-03-19] MEDS: FUROSEMIDE injection 250 MG in D5W 225 ML IV SCH (16:09)
[2022-03-19] MEDS: SANTYL OINT 30GM TOP SCH (16:29)
[2022-03-19 20:33] VITALS: BP 137/88
[2022-03-19] MEDS: BACITRACIN OINTMENT 30GM TUBE TOP SCH (21:00)
[2022-03-19] MEDS: SENNA 8.6 MG TAB (SENOKOT) PO SCH (21:39)
[2022-03-19] MEDS: RAMELTEON 8 MG TAB (ROZEREM) PO SCH (21:39)
[2022-03-20] MEDS: SODIUM CHLORIDE 0.9% INJ 10 ML SYR IV PRN (05:18)
[2022-03-20] MEDS: MORPHINE 4 MG/ML 1ML VIAL/SYRINGE IV PRN ×2 (05:18→09:29)
[2022-03-20 05:50] LABS: HEMATOCRIT 32.7 % (42.0-52.0); HEMOGLOBIN 10.5 g/dl (13.5-17.5); MEAN CORPUSCULAR HEMOGLOBIN 30.2 pg (27.0-33.0); MEAN CORPUSCULAR HGB CONC 32.1 g/dl (32.0-36.5); PLATELET COUNT, AUTOMATED 338 10^3/uL (150-450); RED BLOOD COUNT 3.48 10^6/uL (4.30-6.10); WHITE BLOOD COUNT 6.4 10^3/uL (4.0-10.0)
[2022-03-20 06:00] VITALS: BP 126/68
[2022-03-20 06:21] LABS: ALBUMIN 2.5 GM/DL (3.2-5.2); BILIRUBIN,TOTAL 0.7 MG/DL (0.2-1.0); CALCIUM LEVEL 8.5 MG/DL (8.8-10.2); CREATININE FOR GFR 2.04 MG/DL (0.70-1.30); GLOMERULAR FILTRATION RATE 35.5 (>49); MAGNESIUM LEVEL 2.2 MG/DL (1.8-2.4); POTASSIUM SERUM 3.6 MEQ/L (3.5-5.1); TOTAL PROTEIN 5.8 GM/DL (6.4-8.2)
[2022-03-20] MEDS: CICLOPIROX TOP SCH (09:00)
[2022-03-20] MEDS: CLOBETASOL PROPIONATE EMOLLIENT 0.05% CR 60 GM TOP SCH (09:00)
[2022-03-20] MEDS: DIMETHICONE 2% OINTMENT(VANICREAM) 70GM TUBE TOP SCH (09:00)
[2022-03-20] MEDS: SODIUM CHLORIDE 0.9% INJ 10 ML SYR IV SCH (09:00)
[2022-03-20] MEDS ORDERED: TORSEMIDE 20 MG TAB PO SCH (09:00)
[2022-03-20] MEDS: DOCUSATE SODIUM 100MG CAPSULE PO SCH (09:10)
[2022-03-20] MEDS: HEPARIN SOD (PORCINE) 5000UNITS/ML 1ML VIAL/SYRINGE SQ SCH (09:11)
[2022-03-20] MEDS ORDERED: CETIRIZINE (ZyrTEC) 10 MG TAB PO ONE (12:10)
[2022-03-20] MEDS ORDERED: ACET1TAB55 PO (12:28)
[2022-03-20] MEDS ORDERED: TORS20TA2 PO (12:28)
[2022-03-20] MEDS ORDERED: PILL CUTTER 1 EACH XX PRN (12:30)
== END 2022-03-20 14:20 | disposition home or self-care (01) | DRG 683 ==
LOC: M MSPAV 14:05
PROVIDERS: ADMIT Internal Medicine Nephrology; ATTEND Family Medicine
DX: N17.9 Acute kidney failure, unspecified (principal); C84.00 Mycosis fungoides, unspecified site; L97.909 Non-pressure chronic ulcer of unspecified part of unspecified lower leg with unspecified severity; N18.9 Chronic kidney disease, unspecified; L26 Exfoliative dermatitis; G89.29 Other chronic pain; Z79.899 Other long term (current) drug therapy; F17.210 Nicotine dependence, cigarettes, uncomplicated

== ENCOUNTER → 2022-04-12 | Outpatient (CLI) | payer OTHER ==
[~2022-04-12] MED LIST changes: +ACET1TAB55 PO; +CETI10CA2 PO; +HYDR-3363; +LIDVISCBTL SSP; +METH5TA PO; +OXYC-1 PO; +PRED10TA2; +ROZE8TAB16 PO; +SENN-80 PO; +TORS20TA2 PO; +VENL75TA2 PO; +VITA100093 PO
== END ==
LOC: M PAL 07:32
PROVIDERS: ATTEND Nurse Practitioner Adult Health
DX: C84.00 Mycosis fungoides, unspecified site (principal); C84.10 Sezary disease, unspecified site; G89.3 Neoplasm related pain (acute) (chronic); Z51.5 Encounter for palliative care; K59.00 Constipation, unspecified; F32.A Depression, unspecified; I87.313 Chronic venous hypertension (idiopathic) with ulcer of bilateral lower extremity; F17.210 Nicotine dependence, cigarettes, uncomplicated; Z79.899 Other long term (current) drug therapy; Z79.890 Hormone replacement therapy
CPT/HCPCS: 11042; 11045; G0463

== ENCOUNTER → 2022-04-20 | Outpatient (CLI) | payer OTHER | LOC: M RAD 12:13 | PROVIDERS: ATTEND Nurse Practitioner Family | DX: M25.512 Pain in left shoulder (principal) ==

== ENCOUNTER → 2022-04-21 | Outpatient (CLI) | payer OTHER ==
[~2022-04-21] MED LIST changes: +GASTROGRAFIN SOLUTION 30ML (Q9963) As Ordered ONE
== END ==
LOC: M RAD 14:40
PROVIDERS: ATTEND Nurse Practitioner Family
DX: C84.09 Mycosis fungoides, extranodal and solid organ sites (principal); N28.1 Cyst of kidney, acquired; N40.0 Benign prostatic hyperplasia without lower urinary tract symptoms; R91.8 Other nonspecific abnormal finding of lung field
CPT/HCPCS: 70490; 71250; 73200; 74176; Q9963

== ENCOUNTER 2022-05-06 11:13 | Inpatient (IN) | payer OTHER ==
[~2022-05-06] VITALS: Ht 177.8 cm; Wt 82.2 kg
[~2022-05-06 11:13] MED LIST changes: -DOXY-350 PO; +DOXY-444 PO; -GASTROGRAFIN SOLUTION 30ML (Q9963) As Ordered ONE; -HYDR-3363
[2022-05-06 12:07] LABS: VENOUS BASE EXCESS 0.3 (-2.0-2.0); VENOUS HCO3 24.7 MEQ/L (23.0-27.0); VENOUS PARTIAL PRESSURE CO2 39.1 mmHg (38.0-50.0); VENOUS PARTIAL PRESSURE O2 63.2 mmHg (30.0-50.0); VENOUS PH 7.418 UNITS (7.330-7.430); VENOUS STANDARD HCO3 24.6 MEQ/L; VENOUS TOTAL CO2 25.9 MEQ/L (24.0-28.0)
[2022-05-06 12:12] LABS: BASO % 0.6 % (0.0-1.0); EOS % 0.6 % (0.0-3.0); HEMATOCRIT 34.7 % (42.0-52.0); HEMOGLOBIN 11.5 g/dl (13.5-17.5); LYMPH # 0.4 10^3/uL (1.5-5.0); LYMPH % 5.7 % (24.0-44.0); MEAN CORPUSCULAR HEMOGLOBIN 29.7 pg (27.0-33.0); MEAN CORPUSCULAR HGB CONC 33.1 g/dl (32.0-36.5); MEAN CORPUSCULAR VOLUME 89.7 fl (80.0-96.0); MONO # 0.6 10^3/uL (0.0-0.8); MONO % 8.1 % (2.0-8.0); NEUTROPHILS # 6.1 10^3/uL (1.5-8.5); NEUTROPHILS % 84.6 % (36.0-66.0); PLATELET COUNT, AUTOMATED 294 10^3/uL (150-450); RED BLOOD COUNT 3.87 10^6/uL (4.30-6.10); WHITE BLOOD COUNT 7.2 10^3/uL (4.0-10.0)
[2022-05-06 12:54] LABS: CK-MB VALUE MASS 1.1 NG/ML (<3.6); MB/CK RELATIVE INDEX 5.24 (< OR =4)
[2022-05-06 13:03] LABS: ALBUMIN 2.4 GM/DL (3.2-5.2); BILIRUBIN,DIRECT 0.2 MG/DL (0.0-0.2); BILIRUBIN,TOTAL 0.7 MG/DL (0.2-1.0); CALCIUM LEVEL 8.7 MG/DL (8.8-10.2); CREATININE FOR GFR 1.97 MG/DL (0.70-1.30); POTASSIUM SERUM 3.4 MEQ/L (3.5-5.1); THYROID STIMULATING HORMONE 2.21 uIU/ML (0.358-3.740); TOTAL PROTEIN 5.3 GM/DL (6.4-8.2)
[2022-05-06] MEDS ORDERED: NS 3,200 ML in IV 1 EA IV ONE (13:15)
[2022-05-06] MEDS ORDERED: VANCOMYCIN HCL 2,000 MG in D5W 500 ML IV ONE (13:15)
[2022-05-06] MEDS ORDERED: VANCOMYCIN HCL 1,000 MG, VIAL MATE ADAPTER 1 EACH in NS 250 ML IV ONE ×6 (13:25)
[2022-05-06] MEDS ORDERED: VENL-37 PO (17:50)
[2022-05-06] MEDS ORDERED: OXYC-1 PO (17:50)
[2022-05-06] MEDS ORDERED: LIDVISCBTL SSP (17:50)
[2022-05-06] MEDS ORDERED: PRED20TA PO (17:50)
[2022-05-06] MEDS ORDERED: TORS10TA3 PO (17:50)
[2022-05-06] MEDS ORDERED: TAMS1CAP17 PO (17:51)
[2022-05-06] MEDS ORDERED: DOXY100T PO (17:51)
[2022-05-06] MEDS ORDERED: OMEP40CA5 PO (17:51)
[2022-05-06] MEDS ORDERED: MAGIC MOUTHWASH SUSPENSION BTL SS PRN (17:55)
[2022-05-06] MEDS ORDERED: VANCOMYCIN HCL 1,000 MG, VIAL MATE ADAPTER 1 EACH in NS 250 ML IV SCH (17:55)
[2022-05-06] MEDS ORDERED: HOME MED LIST COMPLETE! XX SCH (17:55)
[2022-05-06] MEDS ORDERED: oxyCODONE 5MG TAB PO PRN (20:00)
[2022-05-06] MEDS ORDERED: LABETALOL 100MG/20ML VIAL IV PRN (20:00)
[2022-05-06] MEDS: tiZANidine 4 MG TAB PO SCH (20:23)
[2022-05-06] MEDS: TAMSULOSIN 0.4 MG CAP PO SCH (20:23)
[2022-05-06 22:15] VITALS: BP 121/60
[2022-05-06] MEDS: VANCOMYCIN HCL 750 MG, VIAL MATE ADAPTER 1 EACH in D5W 250 ML IV SCH (22:55)
[2022-05-07] VITALS: BP 118/62
[2022-05-07 04:00] VITALS: BP 148/84
[2022-05-07 06:18] LABS: BASO # 0.1 10^3/uL (0.0-0.2); EOS # 0.1 10^3/uL (0.0-0.5); EOS % 1.6 % (0.0-3.0); HEMATOCRIT 31.5 % (42.0-52.0); HEMOGLOBIN 10.3 g/dl (13.5-17.5); LYMPH # 1.1 10^3/uL (1.5-5.0); LYMPH % 21.2 % (24.0-44.0); MEAN CORPUSCULAR HEMOGLOBIN 29.7 pg (27.0-33.0); MEAN CORPUSCULAR HGB CONC 32.7 g/dl (32.0-36.5); MEAN CORPUSCULAR VOLUME 90.8 fl (80.0-96.0); MONO # 0.6 10^3/uL (0.0-0.8); MONO % 12.3 % (2.0-8.0); NEUTROPHILS # 3.1 10^3/uL (1.5-8.5); NEUTROPHILS % 63.3 % (36.0-66.0); PLATELET COUNT, AUTOMATED 245 10^3/uL (150-450); RED BLOOD COUNT 3.47 10^6/uL (4.30-6.10)
[2022-05-07 06:59] LABS: CALCIUM LEVEL 8.5 MG/DL (8.8-10.2); CREATININE FOR GFR 1.43 MG/DL (0.70-1.30); GLOMERULAR FILTRATION RATE 53.5 (>49); POTASSIUM SERUM 3.7 MEQ/L (3.5-5.1)
[2022-05-07 08:00] VITALS: BP 148/92
[2022-05-07] MEDS: predniSONE 20 MG TAB PO SCH (08:36)
[2022-05-07] MEDS: VENLAFAXINE 37.5 MG TAB PO SCH (08:37)
[2022-05-07] MEDS: OMEPRAZOLE 20MG CAP PO SCH (08:37)
[2022-05-07] MEDS: amLODIPine 5 MG TAB PO SCH ×2 (09:00→20:07)
[2022-05-07] MEDS: VANCOMYCIN HCL 750 MG, VIAL MATE ADAPTER 1 EACH in D5W 250 ML IV SCH (10:36)
[2022-05-07] MEDS ORDERED: NS 1,000 ML IV SCH (11:35)
[2022-05-07] MEDS ORDERED: RIVAROXABAN 10MG TAB (XARELTO) PO SCH (18:00)
[2022-05-07 20:00] VITALS: BP 184/82
[2022-05-07] MEDS: tiZANidine 4 MG TAB PO SCH (20:06)
[2022-05-07] MEDS: TAMSULOSIN 0.4 MG CAP PO SCH (20:07)
[2022-05-08 00:49] VITALS: BP 170/90
[2022-05-08 01:48] VITALS: BP 172/94
[2022-05-08] MEDS ORDERED: LABETALOL 100MG/20ML VIAL IV STA (01:58)
[2022-05-08] MEDS ORDERED: LABETALOL 100MG/20ML VIAL IV ONE (02:00)
[2022-05-08 02:11] VITALS: BP 172/94
[2022-05-08 02:54] VITALS: BP 150/75
[2022-05-08 04:00] VITALS: BP 144/82
[2022-05-08 05:12] LABS: BASO % 0.6 % (0.0-1.0); EOS # 0.1 10^3/uL (0.0-0.5); EOS % 1.7 % (0.0-3.0); HEMATOCRIT 28.4 % (42.0-52.0); HEMOGLOBIN 9.7 g/dl (13.5-17.5); LYMPH # 1.3 10^3/uL (1.5-5.0); LYMPH % 27.5 % (24.0-44.0); MEAN CORPUSCULAR HEMOGLOBIN 29.9 pg (27.0-33.0); MEAN CORPUSCULAR HGB CONC 34.2 g/dl (32.0-36.5); MEAN CORPUSCULAR VOLUME 87.7 fl (80.0-96.0); MONO # 0.7 10^3/uL (0.0-0.8); MONO % 14.5 % (2.0-8.0); NEUTROPHILS # 2.7 10^3/uL (1.5-8.5); NEUTROPHILS % 55.5 % (36.0-66.0); PLATELET COUNT, AUTOMATED 216 10^3/uL (150-450); RED BLOOD COUNT 3.24 10^6/uL (4.30-6.10); WHITE BLOOD COUNT 4.8 10^3/uL (4.0-10.0)
[2022-05-08 05:40] LABS: CALCIUM LEVEL 8.1 MG/DL (8.8-10.2); CREATININE FOR GFR 1.3 MG/DL (0.70-1.30); GLOMERULAR FILTRATION RATE 59.7 (>49)
[2022-05-08] MEDS ORDERED: POTASSIUM CHLORIDE 10MEQ SR TABLET PO ONE ×2 (07:00→08:00)
[2022-05-08 07:51] VITALS: BP 137/78
[2022-05-08] MEDS: VENLAFAXINE 37.5 MG TAB PO SCH (08:10)
[2022-05-08] MEDS: OMEPRAZOLE 20MG CAP PO SCH (08:10)
[2022-05-08] MEDS: predniSONE 20 MG TAB PO SCH (08:11)
[2022-05-08] MEDS: amLODIPine 5 MG TAB PO SCH (08:12)
[2022-05-08] MEDS ORDERED: AMLO1TAB24 PO (09:40)
[2022-05-08] MEDS ORDERED: VANCOMYCIN HCL 750 MG, VIAL MATE ADAPTER 1 EACH in D5W 250 ML IV ONE (10:00)
== END 2022-05-08 10:56 | disposition home or self-care (01) | DRG 641 ==
LOC: EDBD 11:13 → M ED 13:17 → M ED INP 17:52 → CANRESERV 19:49 → ENRESERV 19:49 → M PCU 22:10
PROVIDERS: ADMIT Internal Medicine Nephrology; ATTEND Internal Medicine Nephrology
DX: E87.20 Acidosis, unspecified (principal); L97.909 Non-pressure chronic ulcer of unspecified part of unspecified lower leg with unspecified severity; N17.9 Acute kidney failure, unspecified; N18.4 Chronic kidney disease, stage 4 (severe); C85.90 Non-Hodgkin lymphoma, unspecified, unspecified site; C84.10 Sezary disease, unspecified site; I13.0 Hypertensive heart and chronic kidney disease with heart failure and stage 1 through stage 4 chronic kidney disease, or unspecified chronic kidney disease; E86.0 Dehydration; G89.29 Other chronic pain; I50.9 Heart failure, unspecified; F32.A Depression, unspecified; Z92.3 Personal history of irradiation; Z92.21 Personal history of antineoplastic chemotherapy; D64.9 Anemia, unspecified; G47.00 Insomnia, unspecified; R29.6 Repeated falls; Z79.899 Other long term (current) drug therapy; F17.210 Nicotine dependence, cigarettes, uncomplicated

== ENCOUNTER → 2022-05-31 | Outpatient (REF) | payer OTHER ==
[~2022-05-31] MED LIST changes: +AMLO1TAB24 PO; +DOXY100T PO; +OMEP40CA5 PO; +TAMS1CAP17 PO; +VENL-37 PO
== END ==
LOC: M LAB REF 17:03
PROVIDERS: ATTEND Internal Medicine Nephrology
DX: N39.0 Urinary tract infection, site not specified (principal)

== ENCOUNTER → 2022-05-31 | Outpatient (REF) | payer OTHER ==
[2022-05-31 19:07] LABS: CHOLESTEROL RISK RATIO 1.92 (<5); HDL CHOLESTEROL 97.5 MG/DL (>40); LDL CHOLESTEROL 59.1 MG/DL (<100)
== END ==
LOC: M LAB REF 17:04
PROVIDERS: ATTEND Nurse Practitioner Family
DX: C84.09 Mycosis fungoides, extranodal and solid organ sites (principal)

== ENCOUNTER → 2022-10-03 | Outpatient (CLI) | payer OTHER ==
[~2022-10-03] MED LIST changes: +BACTDSTA; +DOXY100T; +GABA-1171; +METRCRM; +NYST-38 PO; -NYST50SS PO; +OMEG10002 PO; -OXYC-403 PO; -OXYC-404 PO; +OXYC-673 PO; +OXYC20TA64 PO; +PRED25TA PO; +TIZA4CAP; +TORS10TA3; +[UNRECOGNIZED DRUG - CODE]; +[UNRECOGNIZED DRUG - OTHER] PO
== END ==
LOC: M CARPUL 15:00
PROVIDERS: ATTEND Specialist
DX: C84.00 Mycosis fungoides, unspecified site (principal); C81.90 Hodgkin lymphoma, unspecified, unspecified site; R94.31 Abnormal electrocardiogram [ECG] [EKG]

== ENCOUNTER → 2022-11-04 | Outpatient (REF) | payer OTHER ==
[~2022-11-04] MED LIST changes: +SENN-186 PO; -SENN-80 PO; +[UNRECOGNIZED DRUG - CODE] PO
== END ==
LOC: M LAB REF 07:40
PROVIDERS: ATTEND Nurse Practitioner Family
DX: C84.09 Mycosis fungoides, extranodal and solid organ sites (principal); Z53.9 Procedure and treatment not carried out, unspecified reason

== ENCOUNTER → 2022-11-09 | Outpatient (REF) | payer OTHER ==
[2022-11-09 09:29] LABS: BASO % 0.7 % (0.0-1.0); EOS # 0.7 10^3/uL (0.0-0.5); EOS % 11.3 % (0.0-3.0); HEMATOCRIT 37.1 % (42.0-52.0); HEMOGLOBIN 12.2 g/dl (13.5-17.5); LYMPH # 0.4 10^3/uL (1.5-5.0); MEAN CORPUSCULAR HEMOGLOBIN 29.4 pg (27.0-33.0); MEAN CORPUSCULAR HGB CONC 32.9 g/dl (32.0-36.5); MEAN CORPUSCULAR VOLUME 89.4 fl (80.0-96.0); MONO # 0.6 10^3/uL (0.0-0.8); MONO % 10.4 % (2.0-8.0); NEUTROPHILS # 4.3 10^3/uL (1.5-8.5); NEUTROPHILS % 69.9 % (36.0-66.0); PLATELET COUNT, AUTOMATED 214 10^3/uL (150-450); RED BLOOD COUNT 4.15 10^6/uL (4.30-6.10); WHITE BLOOD COUNT 6.1 10^3/uL (4.0-10.0)
[2022-11-09 09:55] LABS: ALBUMIN 2.9 G/DL (3.2-5.2); CALCIUM LEVEL 8.6 MG/DL (8.3-10.6); CHOLESTEROL RISK RATIO 3.32 (<5); CREATININE FOR GFR 1.37 MG/DL (0.70-1.30); GLOMERULAR FILTRATION RATE 56.1 (>49); LDL CHOLESTEROL 89.2 MG/DL (<100); PHOSPHORUS LEVEL 3.3 MG/DL (2.4-5.1); POTASSIUM SERUM 4.2 MMOL/L (3.5-5.1)
[2022-11-09 09:57] LABS: FREE T4 0.85 NG/DL (0.89-1.76); THYROID STIMULATING HORMONE 1.097 uIU/ML (0.55-4.78)
== END ==
LOC: M LAB REF 09:00
PROVIDERS: ATTEND Nurse Practitioner Family
DX: C84.09 Mycosis fungoides, extranodal and solid organ sites (principal)

== ENCOUNTER → 2022-12-21 | Outpatient (REF) | payer OTHER ==
[2022-12-21 12:21] LABS: BASO % 0.7 % (0.0-1.0); EOS # 0.4 10^3/uL (0.0-0.5); HEMATOCRIT 36.4 % (42.0-52.0); HEMOGLOBIN 11.8 g/dl (13.5-17.5); LYMPH # 0.6 10^3/uL (1.5-5.0); LYMPH % 10.2 % (24.0-44.0); MEAN CORPUSCULAR HEMOGLOBIN 29.1 pg (27.0-33.0); MEAN CORPUSCULAR HGB CONC 32.4 g/dl (32.0-36.5); MEAN CORPUSCULAR VOLUME 89.9 fl (80.0-96.0); MONO # 0.7 10^3/uL (0.0-0.8); MONO % 11.5 % (2.0-8.0); NEUTROPHILS # 4.3 10^3/uL (1.5-8.5); NEUTROPHILS % 71.4 % (36.0-66.0); PLATELET COUNT, AUTOMATED 221 10^3/uL (150-450); RED BLOOD COUNT 4.05 10^6/uL (4.30-6.10)
[2022-12-21 12:30] LABS: ALBUMIN 3.4 G/DL (3.2-5.2); ALKALINE PHOSPHATASE 52 U/L (46-116); ALT/SGPT 17 U/L (7.0-40); AST/SGOT 17 U/L (<34); BILIRUBIN,TOTAL 0.2 MG/DL (0.3-1.2); BLOOD UREA NITROGEN 24 MG/DL (9-23); CALCIUM LEVEL 8.9 MG/DL (8.3-10.6); CARBON DIOXIDE LEVEL 28 MMOL/L (20-31); CHLORIDE LEVEL 107 MMOL/L (98-107); CREATININE FOR GFR 1.17 MG/DL (0.70-1.30); GLOMERULAR FILTRATION RATE > 60.0 (>49); GLUCOSE, FASTING 90 MG/DL (74-106); POTASSIUM SERUM 4.1 MMOL/L (3.5-5.1); SODIUM LEVEL 142 MMOL/L (136-145); TOTAL PROTEIN 6.5 G/DL (5.7-8.2)
[2022-12-21 12:32] LABS: FREE T4 0.72 NG/DL (0.89-1.76)
== END ==
LOC: M LAB REF 11:45
PROVIDERS: ATTEND Dermatology
DX: C84.00 Mycosis fungoides, unspecified site (principal); Z79.899 Other long term (current) drug therapy

== ENCOUNTER → 2023-01-04 | Outpatient (REF) | payer OTHER ==
[2023-01-04 10:23] LABS: BASO # 0.1 10^3/uL (0.0-0.2); EOS # 0.4 10^3/uL (0.0-0.5); EOS % 5.2 % (0.0-3.0); HEMOGLOBIN 12.2 g/dl (13.5-17.5); LYMPH # 0.7 10^3/uL (1.5-5.0); LYMPH % 8.8 % (24.0-44.0); MEAN CORPUSCULAR HEMOGLOBIN 28.6 pg (27.0-33.0); MEAN CORPUSCULAR HGB CONC 32.1 g/dl (32.0-36.5); MONO # 1.3 10^3/uL (0.0-0.8); MONO % 15.7 % (2.0-8.0); NEUTROPHILS # 5.5 10^3/uL (1.5-8.5); NEUTROPHILS % 67.4 % (36.0-66.0); PLATELET COUNT, AUTOMATED 280 10^3/uL (150-450); RED BLOOD COUNT 4.27 10^6/uL (4.30-6.10); WHITE BLOOD COUNT 8.1 10^3/uL (4.0-10.0)
[2023-01-04 10:47] LABS: ALBUMIN 3.5 G/DL (3.2-5.2); ALKALINE PHOSPHATASE 64 U/L (46-116); ALT/SGPT < 9 U/L (7.0-40); AST/SGOT < 8 U/L (<34); BILIRUBIN,TOTAL 0.2 MG/DL (0.3-1.2); BLOOD UREA NITROGEN 18 MG/DL (9-23); CALCIUM LEVEL 9.4 MG/DL (8.3-10.6); CARBON DIOXIDE LEVEL 28 MMOL/L (20-31); CHLORIDE LEVEL 107 MMOL/L (98-107); CREATININE FOR GFR 1.14 MG/DL (0.70-1.30); GLOMERULAR FILTRATION RATE > 60.0 (>49); GLUCOSE, FASTING 101 MG/DL (74-106); POTASSIUM SERUM 3.9 MMOL/L (3.5-5.1); SODIUM LEVEL 140 MMOL/L (136-145); TOTAL PROTEIN 6.7 G/DL (5.7-8.2)
[2023-01-04 10:49] LABS: FREE T4 0.77 NG/DL (0.89-1.76)
== END ==
LOC: M LAB REF 08:34
PROVIDERS: ATTEND Dermatology
DX: Z79.899 Other long term (current) drug therapy (principal); C84.09 Mycosis fungoides, extranodal and solid organ sites

== ENCOUNTER 2023-02-09 12:54 | Emergency (ER) | payer OTHER ==
[~2023-02-09] VITALS: Ht 177.8 cm; Wt 103.3 kg
[~2023-02-09 12:54] MED LIST changes: -ROPI0.253 PO; +ROPI5TAB19 PO
[2023-02-09 12:55] VITALS: BP 118/66; TEMP 98.3; O2SAT 99
[2023-02-10] MEDS ORDERED: VENL37.52 PO (02:24)
[2023-02-10] MEDS ORDERED: BEXA75CA PO ×2 (02:24)
[2023-02-10] MEDS ORDERED: SYNT50TA PO (02:24)
[2023-02-10] MEDS ORDERED: VITA-172 PO (02:24)
[2023-02-10] MEDS ORDERED: UNIS25TA3 PO (02:24)
[2023-02-10] MEDS ORDERED: GABA-1171 PO (02:24)
[2023-02-10] MEDS ORDERED: AUGM0.05 EXT (02:24)
[2023-02-10] MEDS ORDERED: MUPI2OI EXT (02:24)
[2023-02-10] MEDS ORDERED: TORS10TA3 PO (02:24)
[2023-02-10] MEDS ORDERED: DOXY-443 PO (02:24)
[2023-02-10] MEDS ORDERED: FAMO10TA50 PO (02:24)
[2023-02-10] MEDS ORDERED: CETI-14 PO (02:24)
[2023-02-10] MEDS ORDERED: OMEG10002 PO (02:24)
[2023-02-10] MEDS ORDERED: CLOB5CR TOP (02:24)
[2023-02-10] MEDS ORDERED: TIZA4CAP PO (02:24)
== END 2023-02-09 17:23 | disposition left against medical advice (07) ==
LOC: M ED 12:54
DX: Z53.21 Procedure and treatment not carried out due to patient leaving prior to being seen by health care provider (principal)

== ENCOUNTER 2023-02-09 15:36 | Inpatient (IN) | payer OTHER ==
[~2023-02-09] VITALS: Ht 177.8 cm; Wt 114.8 kg
[2023-02-09 19:03] VITALS: BP 144/71; TEMP 97.3; O2SAT 98
[2023-02-09] MEDS ORDERED: ACETAMINOPHEN TAB 650MG DOSE (2X325MG) PO PRN ×2 (19:55→21:55)
[2023-02-09] MEDS ORDERED: VANCOMYCIN HCL 1 MG in IV FLUID PLACE HOLDER 1 EA IV SCH (20:55)
[2023-02-09 20:57] LABS: HEMATOCRIT 38.9 % (42.0-52.0); HEMOGLOBIN 12.3 g/dl (13.5-17.5); MEAN CORPUSCULAR HEMOGLOBIN 27.6 pg (27.0-33.0); MEAN CORPUSCULAR HGB CONC 31.6 g/dl (32.0-36.5); MEAN CORPUSCULAR VOLUME 87.4 fl (80.0-96.0); PLATELET COUNT, AUTOMATED 357 10^3/uL (150-450); RED BLOOD COUNT 4.45 10^6/uL (4.30-6.10); WHITE BLOOD COUNT 6.2 10^3/uL (4.0-10.0)
[2023-02-09 21:22] LABS: ALBUMIN 3.2 G/DL (3.2-5.2); ALKALINE PHOSPHATASE 74 U/L (46-116); ALT/SGPT 13 U/L (7.0-40); AST/SGOT 17 U/L (<34); BILIRUBIN,TOTAL < 0.2 MG/DL (0.3-1.2); BLOOD UREA NITROGEN 21 MG/DL (9-23); CALCIUM LEVEL 9.6 MG/DL (8.3-10.6); CARBON DIOXIDE LEVEL 30 MMOL/L (20-31); CHLORIDE LEVEL 106 MMOL/L (98-107); CREATININE FOR GFR 1.17 MG/DL (0.70-1.30); GLOMERULAR FILTRATION RATE > 60.0 (>49); GLUCOSE, FASTING 86 MG/DL (74-106); POTASSIUM SERUM 3.9 MMOL/L (3.5-5.1); SODIUM LEVEL 142 MMOL/L (136-145); TOTAL PROTEIN 7.1 G/DL (5.7-8.2)
[2023-02-09] MEDS: LACTOBACILLUS ACIDOPHILUS CAP (BACID) PO SCH (22:26)
[2023-02-09] MEDS: PIPERACILLIN/TAZOBACTAM SOD 3.375 GM in D5W MINI-BAG PLUS 50 ML IV SCH (22:27)
[2023-02-09 22:30] VITALS: BP 153/59; TEMP 98.8; O2SAT 99
[2023-02-09] MEDS ORDERED: VANCOMYCIN HCL 1,000 MG, VIAL MATE ADAPTER 1 EACH in D5W 250 ML IV ONE (23:00)
[2023-02-10] MEDS ORDERED: VANCOMYCIN HCL 1,000 MG, VIAL MATE ADAPTER 1 EACH in D5W 250 ML IV ONE ×3
[2023-02-10] MEDS ORDERED: UNIS25TA3 PO (02:24)
[2023-02-10] MEDS ORDERED: DOXY-443 PO (02:24)
[2023-02-10] MEDS ORDERED: TIZA4CAP PO (02:24)
[2023-02-10] MEDS ORDERED: VENL37.52 PO (02:24)
[2023-02-10] MEDS ORDERED: AUGM0.05 EXT (02:24)
[2023-02-10] MEDS ORDERED: CLOB5CR TOP (02:24)
[2023-02-10] MEDS ORDERED: FAMO10TA50 PO (02:24)
[2023-02-10] MEDS ORDERED: OMEG10002 PO (02:24)
[2023-02-10] MEDS ORDERED: BEXA75CA PO ×2 (02:24)
[2023-02-10] MEDS ORDERED: MUPI2OI EXT (02:24)
[2023-02-10] MEDS ORDERED: VITA-172 PO (02:24)
[2023-02-10] MEDS ORDERED: SYNT50TA PO (02:24)
[2023-02-10] MEDS ORDERED: GABA-1171 PO (02:24)
[2023-02-10] MEDS ORDERED: CETI-14 PO (02:24)
[2023-02-10] MEDS ORDERED: TORS10TA3 PO (02:24)
[2023-02-10] MEDS ORDERED: HOME MED LIST COMPLETE! XX SCH (02:25)
[2023-02-10] MEDS: PIPERACILLIN/TAZOBACTAM SOD 3.375 GM in D5W MINI-BAG PLUS 50 ML IV SCH ×4 (03:37→21:41)
[2023-02-10] MEDS ORDERED: FAMOTIDINE 20 MG TAB PO PRN (04:25)
[2023-02-10] MEDS ORDERED: CLOBETASOL PROPIONATE EMOLLIENT 0.05% CR 60 GM TOP PRN (04:25)
[2023-02-10] MEDS ORDERED: CETIRIZINE (ZyrTEC) 10 MG TAB PO PRN (04:25)
[2023-02-10 05:30] VITALS: BP 143/64; TEMP 98.1; O2SAT 98
[2023-02-10] MEDS: LEVOTHYROXINE 50MCG TABLET (0.05MG) PO SCH (06:16)
[2023-02-10 06:32] LABS: BASO # 0.1 10^3/uL (0.0-0.2); EOS # 0.4 10^3/uL (0.0-0.5); EOS % 7.7 % (0.0-3.0); HEMATOCRIT 37.8 % (42.0-52.0); HEMOGLOBIN 11.9 g/dl (13.5-17.5); LYMPH # 0.6 10^3/uL (1.5-5.0); LYMPH % 11.6 % (24.0-44.0); MEAN CORPUSCULAR HEMOGLOBIN 27.2 pg (27.0-33.0); MEAN CORPUSCULAR HGB CONC 31.5 g/dl (32.0-36.5); MEAN CORPUSCULAR VOLUME 86.5 fl (80.0-96.0); MONO # 0.5 10^3/uL (0.0-0.8); MONO % 10.6 % (2.0-8.0); NEUTROPHILS # 3.5 10^3/uL (1.5-8.5); NEUTROPHILS % 68.9 % (36.0-66.0); PLATELET COUNT, AUTOMATED 337 10^3/uL (150-450); RED BLOOD COUNT 4.37 10^6/uL (4.30-6.10); WHITE BLOOD COUNT 5.1 10^3/uL (4.0-10.0)
[2023-02-10 07:00] LABS: CALCIUM LEVEL 9.2 MG/DL (8.3-10.6); CREATININE FOR GFR 1.3 MG/DL (0.70-1.30); GLOMERULAR FILTRATION RATE 59.5 (>49); POTASSIUM SERUM 4.4 MMOL/L (3.5-5.1)
[2023-02-10 07:28] LABS: C REACTIVE PROTEIN QUANTITATIV 2.1 MG/DL (<1.0)
[2023-02-10] MEDS ORDERED: LIDOCAINE W/EPINEPHRINE 1% 20ML VIAL As Ordered ONE (08:52)
[2023-02-10] MEDS: MUPIROCIN 2% OINT 22 GM TUBE EXT SCH ×2 (09:00→21:00)
[2023-02-10] MEDS ORDERED: MIDAZOLAM INJ 2MG/2ML VIAL As Ordered ONE (09:01)
[2023-02-10] MEDS ORDERED: fentaNYL 100 MCG/2 ML INJECTION As Ordered ONE (09:01)
[2023-02-10] MEDS: VENLAFAXINE **XR** 37.5 MG CAPSULE PO SCH (10:23)
[2023-02-10] MEDS: LACTOBACILLUS ACIDOPHILUS CAP (BACID) PO SCH ×3 (10:23→21:38)
[2023-02-10] MEDS: OMEGA-3 1000MG CAPSULE PO SCH ×2 (10:23→21:40)
[2023-02-10] MEDS: VANCOMYCIN HCL 750 MG, VIAL MATE ADAPTER 1 EACH in D5W 250 ML IV SCH ×2 (10:24→23:04)
[2023-02-10] MEDS ORDERED: VANCOMYCIN HCL 1,000 MG, VIAL MATE ADAPTER 1 EACH in D5W 250 ML IV SCH (11:00)
[2023-02-10 14:00] VITALS: BP 128/65; TEMP 97.9; O2SAT 94
[2023-02-10 20:00] VITALS: BP 138/72; TEMP 98.4; O2SAT 98
[2023-02-10] MEDS ORDERED: HEPARIN SOD (PORCINE) 5000UNITS/ML 1ML VIAL/SYRINGE SC SCH (21:00)
[2023-02-10] MEDS: GABAPENTIN 100 MG CAP PO SCH (21:38)
[2023-02-10] MEDS: tiZANidine 4 MG TAB PO PRN (21:40)
[2023-02-10] MEDS: HEPARIN SOD (PORCINE) 5000UNITS/ML 1ML VIAL/SYRINGE SC SCH (21:41)
[2023-02-11] MEDS: PIPERACILLIN/TAZOBACTAM SOD 3.375 GM in D5W MINI-BAG PLUS 50 ML IV SCH (04:21)
[2023-02-11] MEDS: LEVOTHYROXINE 50MCG TABLET (0.05MG) PO SCH (05:55)
[2023-02-11] MEDS: HEPARIN SOD (PORCINE) 5000UNITS/ML 1ML VIAL/SYRINGE SC SCH ×3 (05:56→22:38)
[2023-02-11 06:00] VITALS: BP 135/66; TEMP 98.8; O2SAT 99
[2023-02-11 06:19] LABS: BASO # 0.1 10^3/uL (0.0-0.2); EOS # 0.6 10^3/uL (0.0-0.5); EOS % 10.8 % (0.0-3.0); HEMOGLOBIN 11.3 g/dl (13.5-17.5); LYMPH # 0.7 10^3/uL (1.5-5.0); LYMPH % 11.3 % (24.0-44.0); MEAN CORPUSCULAR HEMOGLOBIN 27.8 pg (27.0-33.0); MEAN CORPUSCULAR HGB CONC 32.3 g/dl (32.0-36.5); MEAN CORPUSCULAR VOLUME 86.2 fl (80.0-96.0); MONO # 0.7 10^3/uL (0.0-0.8); MONO % 12.3 % (2.0-8.0); NEUTROPHILS # 3.8 10^3/uL (1.5-8.5); NEUTROPHILS % 64.4 % (36.0-66.0); PLATELET COUNT, AUTOMATED 299 10^3/uL (150-450); RED BLOOD COUNT 4.06 10^6/uL (4.30-6.10); WHITE BLOOD COUNT 5.9 10^3/uL (4.0-10.0)
[2023-02-11 06:48] LABS: C REACTIVE PROTEIN QUANTITATIV 1.6 MG/DL (<1.0); CREATININE FOR GFR 1.41 MG/DL (0.70-1.30); GLOMERULAR FILTRATION RATE 54.2 (>49); MAGNESIUM LEVEL 1.9 MG/DL (1.8-2.4); POTASSIUM SERUM 4.2 MMOL/L (3.5-5.1)
[2023-02-11] MEDS: LACTOBACILLUS ACIDOPHILUS CAP (BACID) PO SCH ×3 (08:17→22:37)
[2023-02-11] MEDS: OMEGA-3 1000MG CAPSULE PO SCH ×2 (08:17→22:37)
[2023-02-11] MEDS: VENLAFAXINE **XR** 37.5 MG CAPSULE PO SCH (08:17)
[2023-02-11] MEDS: MUPIROCIN 2% OINT 22 GM TUBE EXT SCH ×2 (08:18→22:39)
[2023-02-11] MEDS: VANCOMYCIN HCL 750 MG, VIAL MATE ADAPTER 1 EACH in D5W 250 ML IV SCH ×2 (11:09→22:37)
[2023-02-11 14:00] VITALS: BP 133/65; TEMP 97.7; O2SAT 99
[2023-02-11 20:00] VITALS: BP 145/73; TEMP 99; O2SAT 99
[2023-02-11] MEDS: tiZANidine 4 MG TAB PO PRN (22:37)
[2023-02-11] MEDS: GABAPENTIN 100 MG CAP PO SCH (22:37)
[2023-02-12] MEDS: LEVOTHYROXINE 50MCG TABLET (0.05MG) PO SCH (05:39)
[2023-02-12] MEDS: HEPARIN SOD (PORCINE) 5000UNITS/ML 1ML VIAL/SYRINGE SC SCH ×3 (05:39→21:52)
[2023-02-12 05:50] LABS: BASO # 0.1 10^3/uL (0.0-0.2); BASO % 1.2 % (0.0-1.0); EOS # 0.6 10^3/uL (0.0-0.5); EOS % 11.8 % (0.0-3.0); HEMATOCRIT 34.6 % (42.0-52.0); HEMOGLOBIN 11.1 g/dl (13.5-17.5); LYMPH # 0.9 10^3/uL (1.5-5.0); LYMPH % 17.9 % (24.0-44.0); MEAN CORPUSCULAR HGB CONC 32.1 g/dl (32.0-36.5); MEAN CORPUSCULAR VOLUME 87.2 fl (80.0-96.0); MONO # 0.7 10^3/uL (0.0-0.8); MONO % 13.2 % (2.0-8.0); NEUTROPHILS # 2.8 10^3/uL (1.5-8.5); NEUTROPHILS % 55.7 % (36.0-66.0); PLATELET COUNT, AUTOMATED 310 10^3/uL (150-450); RED BLOOD COUNT 3.97 10^6/uL (4.30-6.10); WHITE BLOOD COUNT 5.1 10^3/uL (4.0-10.0)
[2023-02-12 05:57] VITALS: BP 133/66; TEMP 98.2; O2SAT 98
[2023-02-12 06:13] LABS: C REACTIVE PROTEIN QUANTITATIV 1.4 MG/DL (<1.0); CALCIUM LEVEL 8.9 MG/DL (8.3-10.6); CREATININE FOR GFR 1.36 MG/DL (0.70-1.30); GLOMERULAR FILTRATION RATE 56.5 (>49); POTASSIUM SERUM 4.8 MMOL/L (3.5-5.1)
[2023-02-12] MEDS: LACTOBACILLUS ACIDOPHILUS CAP (BACID) PO SCH ×3 (09:46→21:51)
[2023-02-12] MEDS: OMEGA-3 1000MG CAPSULE PO SCH ×2 (09:46→21:51)
[2023-02-12] MEDS: VENLAFAXINE **XR** 37.5 MG CAPSULE PO SCH (09:46)
[2023-02-12] MEDS: MUPIROCIN 2% OINT 22 GM TUBE EXT SCH ×2 (09:47→21:52)
[2023-02-12] MEDS: VANCOMYCIN HCL 750 MG, VIAL MATE ADAPTER 1 EACH in D5W 250 ML IV SCH ×2 (11:15→21:53)
[2023-02-12] MEDS: VITAMIN D 1,000 INTERNATIONAL UNITS TABLET PO SCH (12:38)
[2023-02-12] MEDS: CYANOCOBALAMIN 500 MCG TAB PO SCH (12:38)
[2023-02-12 14:00] VITALS: BP 124/65; TEMP 97.7; O2SAT 99
[2023-02-12 20:44] VITALS: BP 126/66; TEMP 97.9; O2SAT 96
[2023-02-12] MEDS: GABAPENTIN 100 MG CAP PO SCH (21:51)
[2023-02-12] MEDS: MIRTAZAPINE 15 MG TAB PO PRN (22:33)
[2023-02-12] MEDS: tiZANidine 4 MG TAB PO PRN (22:33)
[2023-02-13] MEDS: HEPARIN SOD (PORCINE) 5000UNITS/ML 1ML VIAL/SYRINGE SC SCH ×3 (05:41→20:23)
[2023-02-13] MEDS: LEVOTHYROXINE 50MCG TABLET (0.05MG) PO SCH (05:41)
[2023-02-13 05:43] VITALS: BP 149/73; TEMP 97.5; O2SAT 98
[2023-02-13 06:17] LABS: BASO # 0.1 10^3/uL (0.0-0.2); BASO % 1.5 % (0.0-1.0); EOS # 0.5 10^3/uL (0.0-0.5); EOS % 11.5 % (0.0-3.0); HEMATOCRIT 35.5 % (42.0-52.0); HEMOGLOBIN 11.5 g/dl (13.5-17.5); LYMPH # 0.8 10^3/uL (1.5-5.0); LYMPH % 17.7 % (24.0-44.0); MEAN CORPUSCULAR HEMOGLOBIN 27.8 pg (27.0-33.0); MEAN CORPUSCULAR HGB CONC 32.4 g/dl (32.0-36.5); MONO # 0.6 10^3/uL (0.0-0.8); MONO % 12.6 % (2.0-8.0); NEUTROPHILS # 2.6 10^3/uL (1.5-8.5); NEUTROPHILS % 56.3 % (36.0-66.0); PLATELET COUNT, AUTOMATED 297 10^3/uL (150-450); RED BLOOD COUNT 4.13 10^6/uL (4.30-6.10); WHITE BLOOD COUNT 4.7 10^3/uL (4.0-10.0)
[2023-02-13 06:43] LABS: BLOOD UREA NITROGEN 12 MG/DL (9-23); CARBON DIOXIDE LEVEL 26 MMOL/L (20-31); CHLORIDE LEVEL 110 MMOL/L (98-107); CREATININE FOR GFR 1.25 MG/DL (0.70-1.30); GLOMERULAR FILTRATION RATE > 60.0 (>49); GLUCOSE, FASTING 76 MG/DL (74-106); POTASSIUM SERUM 4.1 MMOL/L (3.5-5.1); SODIUM LEVEL 143 MMOL/L (136-145)
[2023-02-13] MEDS: OMEGA-3 1000MG CAPSULE PO SCH ×2 (08:46→20:22)
[2023-02-13] MEDS: LACTOBACILLUS ACIDOPHILUS CAP (BACID) PO SCH ×3 (08:46→20:22)
[2023-02-13] MEDS: CYANOCOBALAMIN 500 MCG TAB PO SCH (08:46)
[2023-02-13] MEDS: VITAMIN D 1,000 INTERNATIONAL UNITS TABLET PO SCH (08:46)
[2023-02-13] MEDS: VENLAFAXINE **XR** 37.5 MG CAPSULE PO SCH (08:46)
[2023-02-13] MEDS: MUPIROCIN 2% OINT 22 GM TUBE EXT SCH ×2 (08:47→20:24)
[2023-02-13] MEDS: VANCOMYCIN HCL 750 MG, VIAL MATE ADAPTER 1 EACH in D5W 250 ML IV SCH ×2 (11:14→22:57)
[2023-02-13] MEDS ORDERED: LIDOCAINE 1% MDV 20ML VIAL As Ordered ONE (11:26)
[2023-02-13 14:30] VITALS: BP 127/57; TEMP 97.9; O2SAT 99
[2023-02-13] MEDS: SODIUM CHLORIDE 0.9% INJ 10 ML SYR IV SCH (17:06)
[2023-02-13] MEDS: GABAPENTIN 100 MG CAP PO SCH (20:22)
[2023-02-13 20:41] VITALS: BP 143/70; TEMP 97.9; O2SAT 100
[2023-02-13] MEDS: MIRTAZAPINE 15 MG TAB PO PRN (22:56)
[2023-02-13] MEDS: tiZANidine 4 MG TAB PO PRN (22:56)
[2023-02-14] MEDS: SODIUM CHLORIDE 0.9% INJ 10 ML SYR IV PRN ×2 (00:09→12:08)
[2023-02-14] MEDS: SODIUM CHLORIDE 0.9% INJ 10 ML SYR IV SCH ×2 (05:45→16:33)
[2023-02-14] MEDS: HEPARIN SOD (PORCINE) 5000UNITS/ML 1ML VIAL/SYRINGE SC SCH ×3 (05:45→22:05)
[2023-02-14] MEDS: LEVOTHYROXINE 50MCG TABLET (0.05MG) PO SCH (05:45)
[2023-02-14 06:10] VITALS: BP 141/68; TEMP 97.7; O2SAT 98
[2023-02-14 06:50] LABS: BASO # 0.1 10^3/uL (0.0-0.2); BASO % 1.9 % (0.0-1.0); EOS # 0.5 10^3/uL (0.0-0.5); EOS % 8.9 % (0.0-3.0); HEMATOCRIT 37.4 % (42.0-52.0); HEMOGLOBIN 12.1 g/dl (13.5-17.5); LYMPH # 0.9 10^3/uL (1.5-5.0); LYMPH % 16.7 % (24.0-44.0); MEAN CORPUSCULAR HGB CONC 32.4 g/dl (32.0-36.5); MEAN CORPUSCULAR VOLUME 86.6 fl (80.0-96.0); MONO # 0.7 10^3/uL (0.0-0.8); MONO % 12.8 % (2.0-8.0); NEUTROPHILS # 3.2 10^3/uL (1.5-8.5); NEUTROPHILS % 59.1 % (36.0-66.0); PLATELET COUNT, AUTOMATED 341 10^3/uL (150-450); RED BLOOD COUNT 4.32 10^6/uL (4.30-6.10); WHITE BLOOD COUNT 5.4 10^3/uL (4.0-10.0)
[2023-02-14 07:20] LABS: BLOOD UREA NITROGEN 14 MG/DL (9-23); CARBON DIOXIDE LEVEL 22 MMOL/L (20-31); CHLORIDE LEVEL 110 MMOL/L (98-107); CREATININE FOR GFR 1.27 MG/DL (0.70-1.30); GLOMERULAR FILTRATION RATE > 60.0 (>49); GLUCOSE, FASTING 82 MG/DL (74-106); POTASSIUM SERUM 4.3 MMOL/L (3.5-5.1); SODIUM LEVEL 143 MMOL/L (136-145)
[2023-02-14] MEDS: VENLAFAXINE **XR** 37.5 MG CAPSULE PO SCH (09:48)
[2023-02-14] MEDS: VITAMIN D 1,000 INTERNATIONAL UNITS TABLET PO SCH (09:48)
[2023-02-14] MEDS: OMEGA-3 1000MG CAPSULE PO SCH ×2 (09:48→22:05)
[2023-02-14] MEDS: LACTOBACILLUS ACIDOPHILUS CAP (BACID) PO SCH ×3 (09:48→22:04)
[2023-02-14] MEDS: CYANOCOBALAMIN 500 MCG TAB PO SCH (09:48)
[2023-02-14] MEDS: MUPIROCIN 2% OINT 22 GM TUBE EXT SCH ×2 (09:49→22:06)
[2023-02-14] MEDS ORDERED: DAPT350S IV ×2 (10:09→10:29)
[2023-02-14] MEDS: VANCOMYCIN HCL 750 MG, VIAL MATE ADAPTER 1 EACH in D5W 250 ML IV SCH ×2 (12:07→22:58)
[2023-02-14 14:00] VITALS: BP 136/70; TEMP 97.7; O2SAT 99
[2023-02-14 19:52] VITALS: BP 139/52; TEMP 97.9; O2SAT 98
[2023-02-14] MEDS: GABAPENTIN 100 MG CAP PO SCH (22:04)
[2023-02-14] MEDS: tiZANidine 4 MG TAB PO PRN (22:04)
[2023-02-15] MEDS: SODIUM CHLORIDE 0.9% INJ 10 ML SYR IV PRN (00:48)
[2023-02-15 05:30] VITALS: BP 127/72; TEMP 97.7; O2SAT 99
[2023-02-15] MEDS: LEVOTHYROXINE 50MCG TABLET (0.05MG) PO SCH (05:42)
[2023-02-15] MEDS: HEPARIN SOD (PORCINE) 5000UNITS/ML 1ML VIAL/SYRINGE SC SCH ×3 (05:43→22:06)
[2023-02-15] MEDS: SODIUM CHLORIDE 0.9% INJ 10 ML SYR IV SCH ×2 (05:43→17:28)
[2023-02-15 06:27] LABS: BASO # 0.1 10^3/uL (0.0-0.2); BASO % 1.5 % (0.0-1.0); EOS # 0.6 10^3/uL (0.0-0.5); EOS % 8.6 % (0.0-3.0); HEMATOCRIT 34.5 % (42.0-52.0); HEMOGLOBIN 11.3 g/dl (13.5-17.5); LYMPH % 14.9 % (24.0-44.0); MEAN CORPUSCULAR HEMOGLOBIN 28.5 pg (27.0-33.0); MEAN CORPUSCULAR HGB CONC 32.8 g/dl (32.0-36.5); MEAN CORPUSCULAR VOLUME 86.9 fl (80.0-96.0); MONO # 0.9 10^3/uL (0.0-0.8); MONO % 13.4 % (2.0-8.0); NEUTROPHILS % 60.7 % (36.0-66.0); PLATELET COUNT, AUTOMATED 292 10^3/uL (150-450); RED BLOOD COUNT 3.97 10^6/uL (4.30-6.10); WHITE BLOOD COUNT 6.5 10^3/uL (4.0-10.0)
[2023-02-15 06:49] LABS: BLOOD UREA NITROGEN 16 MG/DL (9-23); CALCIUM LEVEL 8.9 MG/DL (8.3-10.6); CARBON DIOXIDE LEVEL 22 MMOL/L (20-31); CHLORIDE LEVEL 112 MMOL/L (98-107); CREATININE FOR GFR 1.21 MG/DL (0.70-1.30); GLOMERULAR FILTRATION RATE > 60.0 (>49); GLUCOSE, FASTING 81 MG/DL (74-106); POTASSIUM SERUM 4.4 MMOL/L (3.5-5.1); SODIUM LEVEL 143 MMOL/L (136-145)
[2023-02-15 07:21] LABS: CPK CREATINE PHOSPHOKINASE 43 U/L (46-171)
[2023-02-15] MEDS: DAPTOMYCIN IV SCH (09:43)
[2023-02-15] MEDS: NS IV SCH (09:43)
[2023-02-15] MEDS: VITAMIN D 1,000 INTERNATIONAL UNITS TABLET PO SCH (09:43)
[2023-02-15] MEDS: VENLAFAXINE **XR** 37.5 MG CAPSULE PO SCH (09:43)
[2023-02-15] MEDS: CYANOCOBALAMIN 500 MCG TAB PO SCH (09:43)
[2023-02-15] MEDS: MUPIROCIN 2% OINT 22 GM TUBE EXT SCH ×2 (09:43→21:00)
[2023-02-15] MEDS: OMEGA-3 1000MG CAPSULE PO SCH ×2 (09:43→22:06)
[2023-02-15] MEDS: LACTOBACILLUS ACIDOPHILUS CAP (BACID) PO SCH ×3 (09:43→22:05)
[2023-02-15 14:00] VITALS: BP 167/75; TEMP 97.5; O2SAT 98
[2023-02-15 20:00] VITALS: BP 159/68; TEMP 98.1; O2SAT 100
[2023-02-15] MEDS: MIRTAZAPINE 15 MG TAB PO PRN (22:05)
[2023-02-15] MEDS: tiZANidine 4 MG TAB PO PRN (22:05)
[2023-02-15] MEDS: GABAPENTIN 100 MG CAP PO SCH (22:06)
[2023-02-16 06:00] VITALS: BP 84/31; TEMP 97.7; O2SAT 100
[2023-02-16] MEDS: LEVOTHYROXINE 50MCG TABLET (0.05MG) PO SCH (06:01)
[2023-02-16] MEDS: SODIUM CHLORIDE 0.9% INJ 10 ML SYR IV SCH (06:02)
[2023-02-16] MEDS: HEPARIN SOD (PORCINE) 5000UNITS/ML 1ML VIAL/SYRINGE SC SCH (06:02)
[2023-02-16 06:18] LABS: BASO # 0.1 10^3/uL (0.0-0.2); BASO % 2.1 % (0.0-1.0); EOS # 0.5 10^3/uL (0.0-0.5); EOS % 8.3 % (0.0-3.0); HEMOGLOBIN 11.2 g/dl (13.5-17.5); LYMPH % 15.5 % (24.0-44.0); MEAN CORPUSCULAR HEMOGLOBIN 28.6 pg (27.0-33.0); MEAN CORPUSCULAR HGB CONC 32.9 g/dl (32.0-36.5); MEAN CORPUSCULAR VOLUME 86.7 fl (80.0-96.0); MONO # 0.8 10^3/uL (0.0-0.8); MONO % 12.9 % (2.0-8.0); NEUTROPHILS # 3.8 10^3/uL (1.5-8.5); NEUTROPHILS % 60.4 % (36.0-66.0); PLATELET COUNT, AUTOMATED 284 10^3/uL (150-450); RED BLOOD COUNT 3.92 10^6/uL (4.30-6.10); WHITE BLOOD COUNT 6.3 10^3/uL (4.0-10.0)
[2023-02-16 06:31] LABS: BLOOD UREA NITROGEN 14 MG/DL (9-23); CALCIUM LEVEL 8.6 MG/DL (8.3-10.6); CARBON DIOXIDE LEVEL 22 MMOL/L (20-31); CHLORIDE LEVEL 111 MMOL/L (98-107); CREATININE FOR GFR 1.17 MG/DL (0.70-1.30); GLOMERULAR FILTRATION RATE > 60.0 (>49); GLUCOSE, FASTING 97 MG/DL (74-106); POTASSIUM SERUM 4.2 MMOL/L (3.5-5.1); SODIUM LEVEL 142 MMOL/L (136-145)
[2023-02-16] MEDS: LACTOBACILLUS ACIDOPHILUS CAP (BACID) PO SCH (08:15)
[2023-02-16] MEDS: VITAMIN D 1,000 INTERNATIONAL UNITS TABLET PO SCH (08:15)
[2023-02-16] MEDS: VENLAFAXINE **XR** 37.5 MG CAPSULE PO SCH (08:15)
[2023-02-16] MEDS: CYANOCOBALAMIN 500 MCG TAB PO SCH (08:15)
[2023-02-16] MEDS: OMEGA-3 1000MG CAPSULE PO SCH (08:15)
[2023-02-16] MEDS: MUPIROCIN 2% OINT 22 GM TUBE EXT SCH (08:16)
[2023-02-16] MEDS: DAPTOMYCIN IV SCH (10:05)
[2023-02-16] MEDS: NS IV SCH (10:05)
[2023-02-17] MEDS ORDERED: ATOR1TAB21 PO (20:00)
[2023-02-17] MEDS ORDERED: DOXE50CA PO (20:00)
== END 2023-02-16 12:56 | disposition home or self-care (01) | DRG 315 ==
LOC: M MSPAV 19:03
PROVIDERS: ADMIT Internal Medicine; ATTEND Internal Medicine
PROC: 05PY33Z Removal of Infusion Device from Upper Vein, Percutaneous Approach (ICD-10-PCS; 2023-02-10)
PROC: B246ZZZ Ultrasonography of Right and Left Heart (ICD-10-PCS; 2023-02-13)
PROC: 02HV33Z Insertion of Infusion Device into Superior Vena Cava, Percutaneous Approach (ICD-10-PCS; principal; 2023-02-13 15:00)
DX: T80.211A Bloodstream infection due to central venous catheter, initial encounter (principal); C84.10 Sezary disease, unspecified site; R78.81 Bacteremia; I82.611 Acute embolism and thrombosis of superficial veins of right upper extremity; E03.9 Hypothyroidism, unspecified; N18.31 Chronic kidney disease, stage 3a; D63.1 Anemia in chronic kidney disease; E78.5 Hyperlipidemia, unspecified; F32.A Depression, unspecified; L08.9 Local infection of the skin and subcutaneous tissue, unspecified; G47.00 Insomnia, unspecified; I50.9 Heart failure, unspecified; Z79.2 Long term (current) use of antibiotics; Z79.890 Hormone replacement therapy; Z79.899 Other long term (current) drug therapy; Z20.822 Contact with and (suspected) exposure to COVID-19

== ENCOUNTER 2023-02-17 14:48 | Observation (INO) | payer OTHER ==
[~2023-02-17] VITALS: Ht 177.8 cm; Wt 104.7 kg
[2023-02-17] MEDS: MUPIROCIN 2% OINT 22 GM TUBE EXT SCH (01:14)
[~2023-02-17 14:48] MED LIST changes: +AUGM0.05 EXT; +BEXA75CA PO; +CETI-14 PO; +CLOB5CR TOP; +DAPT350S IV; +DOXY-443 PO; +FAMO10TA50 PO; +GABA-1171 PO; +MUPI2OI EXT; +SYNT50TA PO; +UNIS25TA3 PO; +VENL37.52 PO; +VITA-172 PO
[2023-02-17 19:02] LABS: BASO # 0.1 10^3/uL (0.0-0.2); BASO % 1.7 % (0.0-1.0); EOS # 0.7 10^3/uL (0.0-0.5); EOS % 9.5 % (0.0-3.0); HEMATOCRIT 37.1 % (42.0-52.0); LYMPH # 0.9 10^3/uL (1.5-5.0); LYMPH % 12.6 % (24.0-44.0); MEAN CORPUSCULAR HEMOGLOBIN 27.8 pg (27.0-33.0); MEAN CORPUSCULAR HGB CONC 32.3 g/dl (32.0-36.5); MEAN CORPUSCULAR VOLUME 86.1 fl (80.0-96.0); MONO # 0.8 10^3/uL (0.0-0.8); MONO % 11.5 % (2.0-8.0); NEUTROPHILS # 4.6 10^3/uL (1.5-8.5); NEUTROPHILS % 64.3 % (36.0-66.0); PLATELET COUNT, AUTOMATED 326 10^3/uL (150-450); RED BLOOD COUNT 4.31 10^6/uL (4.30-6.10); WHITE BLOOD COUNT 7.1 10^3/uL (4.0-10.0)
[2023-02-17] MEDS ORDERED: MED REC IN PROGRESS XX SCH (19:15)
[2023-02-17 19:42] LABS: ALBUMIN 3.4 G/DL (3.2-5.2); ALKALINE PHOSPHATASE 62 U/L (46-116); ALT/SGPT 26 U/L (7.0-40); AST/SGOT 32 U/L (<34); BILIRUBIN,DIRECT < 0.1 MG/DL (<0.4); BILIRUBIN,TOTAL 0.2 MG/DL (0.3-1.2); BLOOD UREA NITROGEN 16 MG/DL (9-23); CALCIUM LEVEL 9.6 MG/DL (8.3-10.6); CARBON DIOXIDE LEVEL 26 MMOL/L (20-31); CHLORIDE LEVEL 106 MMOL/L (98-107); CREATININE FOR GFR 1.32 MG/DL (0.70-1.30); GLOMERULAR FILTRATION RATE 58.5 (>49); GLUCOSE, FASTING 91 MG/DL (74-106); POTASSIUM SERUM 4.6 MMOL/L (3.5-5.1); SODIUM LEVEL 139 MMOL/L (136-145); TOTAL PROTEIN 7.3 G/DL (5.7-8.2)
[2023-02-17] MEDS ORDERED: DAPTOMYCIN IV SCH (19:50)
[2023-02-17] MEDS ORDERED: NS IV SCH (19:50)
[2023-02-17] MEDS ORDERED: DOXE50CA PO (20:00)
[2023-02-17] MEDS ORDERED: ATOR1TAB21 PO (20:00)
[2023-02-17] MEDS ORDERED: HOME MED LIST COMPLETE! XX SCH (20:00)
[2023-02-17] MEDS ORDERED: CLOBETASOL PROPIONATE EMOLLIENT 0.05% CR 60 GM TOP PRN (21:00)
[2023-02-17] MEDS ORDERED: ACETAMINOPHEN TAB 650MG DOSE (2X325MG) PO PRN (21:00)
[2023-02-17] MEDS ORDERED: FAMOTIDINE 20 MG TAB PO PRN (21:00)
[2023-02-17] MEDS ORDERED: CETIRIZINE (ZyrTEC) 10 MG TAB PO PRN (21:00)
[2023-02-17] MEDS ORDERED: DOXEPIN 25 MG CAP PO PRN (21:00)
[2023-02-17 23:54] VITALS: BP 139/57; TEMP 97.9; O2SAT 99
[2023-02-18] MEDS: MIRTAZAPINE 15 MG TAB PO PRN ×2 (01:03→22:50)
[2023-02-18] MEDS: tiZANidine 4 MG TAB PO PRN ×2 (01:03→22:50)
[2023-02-18 05:38] VITALS: BP 151/72; TEMP 98.8; O2SAT 97
[2023-02-18] MEDS: LEVOTHYROXINE 50MCG TABLET (0.05MG) PO SCH (05:44)
[2023-02-18 06:51] LABS: HEMATOCRIT 33.5 % (42.0-52.0); HEMOGLOBIN 10.8 g/dl (13.5-17.5); MEAN CORPUSCULAR HEMOGLOBIN 27.6 pg (27.0-33.0); MEAN CORPUSCULAR HGB CONC 32.2 g/dl (32.0-36.5); MEAN CORPUSCULAR VOLUME 85.5 fl (80.0-96.0); PLATELET COUNT, AUTOMATED 273 10^3/uL (150-450); RED BLOOD COUNT 3.92 10^6/uL (4.30-6.10); WHITE BLOOD COUNT 5.9 10^3/uL (4.0-10.0)
[2023-02-18 07:15] LABS: BLOOD UREA NITROGEN 17 MG/DL (9-23); CALCIUM LEVEL 9.1 MG/DL (8.3-10.6); CARBON DIOXIDE LEVEL 24 MMOL/L (20-31); CHLORIDE LEVEL 108 MMOL/L (98-107); CREATININE FOR GFR 1.22 MG/DL (0.70-1.30); GLOMERULAR FILTRATION RATE > 60.0 (>49); GLUCOSE, FASTING 85 MG/DL (74-106); MAGNESIUM LEVEL 1.7 MG/DL (1.8-2.4); POTASSIUM SERUM 4.1 MMOL/L (3.5-5.1); SODIUM LEVEL 141 MMOL/L (136-145)
[2023-02-18] MEDS ORDERED: ATORVASTATIN 20 MG TAB PO SCH (09:00)
[2023-02-18] MEDS: MUPIROCIN 2% OINT 22 GM TUBE EXT SCH ×2 (09:00→20:47)
[2023-02-18] MEDS: TORSEMIDE 10 MG TABLET PO SCH (09:00)
[2023-02-18] MEDS: VENLAFAXINE **XR** 37.5 MG CAPSULE PO SCH (09:31)
[2023-02-18] MEDS: MAGNESIUM OXIDE 400MG TAB (MAG-OX) PO SCH ×2 (09:31→20:45)
[2023-02-18 14:22] VITALS: BP 132/66; TEMP 97.7; O2SAT 100
[2023-02-18] MEDS: DAPTOMYCIN IV SCH (20:45)
[2023-02-18] MEDS: NS IV SCH (20:45)
[2023-02-18 21:20] VITALS: BP 156/91; TEMP 98.4; O2SAT 96
[2023-02-19] MEDS: LEVOTHYROXINE 50MCG TABLET (0.05MG) PO SCH (05:35)
[2023-02-19 05:46] VITALS: BP 124/60; TEMP 98.4; O2SAT 97
[2023-02-19] MEDS: TORSEMIDE 10 MG TABLET PO SCH (09:10)
[2023-02-19] MEDS: MAGNESIUM OXIDE 400MG TAB (MAG-OX) PO SCH (09:10)
[2023-02-19] MEDS: MUPIROCIN 2% OINT 22 GM TUBE EXT SCH (09:11)
[2023-02-19] MEDS: VENLAFAXINE **XR** 37.5 MG CAPSULE PO SCH (09:11)
[2023-02-19 14:00] VITALS: BP 132/75; TEMP 97.5; O2SAT 99
[2023-02-19] MEDS: NS IV SCH (14:15)
[2023-02-19] MEDS: DAPTOMYCIN IV SCH (14:15)
[2023-02-19] MEDS ORDERED: VITA100093 PO ×2 (15:58→16:12)
[2023-02-19] MEDS ORDERED: OMEG1CAP85 PO (15:58)
[2023-02-19] MEDS ORDERED: NEUR100C PO ×2 (15:58→16:12)
[2023-02-19] MEDS ORDERED: VITA500T40 PO ×2 (15:58→16:12)
[2023-02-19] MEDS ORDERED: OMEG10002 PO ×2 (16:00→16:12)
== END 2023-02-19 16:00 | disposition home health service (06) ==
LOC: M ED 14:48 → M ED INP 14:49 → M ED 16:20 → M MSPAV 23:54
PROVIDERS: ADMIT Family Medicine; ATTEND Internal Medicine Nephrology
DX: T80.219A Unspecified infection due to central venous catheter, initial encounter (principal); E83.42 Hypomagnesemia; C84.10 Sezary disease, unspecified site; C84.00 Mycosis fungoides, unspecified site; B95.62 Methicillin resistant Staphylococcus aureus infection as the cause of diseases classified elsewhere; E03.9 Hypothyroidism, unspecified; E78.5 Hyperlipidemia, unspecified; F39 Unspecified mood [affective] disorder; F32.A Depression, unspecified; Z92.3 Personal history of irradiation; Z92.21 Personal history of antineoplastic chemotherapy; G47.00 Insomnia, unspecified; L97.909 Non-pressure chronic ulcer of unspecified part of unspecified lower leg with unspecified severity; I27.0 Primary pulmonary hypertension; Z79.2 Long term (current) use of antibiotics; Z79.899 Other long term (current) drug therapy
CPT/HCPCS: 36415; 80048; 80076; 83605; 83735; 85025; 85027; 87040; 87071; 87077; 87103; 87186; 87635; 93971; 96365; 96366; 99284; J0878

== ENCOUNTER → 2023-02-20 | Outpatient (REF) | payer OTHER ==
[~2023-02-20] MED LIST changes: +ATOR1TAB21 PO; +DOXE50CA PO; +NEUR100C PO; +OMEG1CAP85 PO; +VITA500T40 PO
[2023-02-20 15:59] LABS: HEMATOCRIT 36.7 % (42.0-52.0); HEMOGLOBIN 11.5 g/dl (13.5-17.5); MEAN CORPUSCULAR HEMOGLOBIN 27.7 pg (27.0-33.0); MEAN CORPUSCULAR HGB CONC 31.3 g/dl (32.0-36.5); MEAN CORPUSCULAR VOLUME 88.4 fl (80.0-96.0); PLATELET COUNT, AUTOMATED 319 10^3/uL (150-450); RED BLOOD COUNT 4.15 10^6/uL (4.30-6.10); WHITE BLOOD COUNT 6.4 10^3/uL (4.0-10.0)
[2023-02-20 16:14] LABS: CPK CREATINE PHOSPHOKINASE 59 U/L (46-171)
[2023-02-20 16:15] LABS: BLOOD UREA NITROGEN 24 MG/DL (9-23); CALCIUM LEVEL 8.9 MG/DL (8.3-10.6); CARBON DIOXIDE LEVEL 23 MMOL/L (20-31); CHLORIDE LEVEL 106 MMOL/L (98-107); CREATININE FOR GFR 1.27 MG/DL (0.70-1.30); GLOMERULAR FILTRATION RATE > 60.0 (>49); GLUCOSE, FASTING 55 MG/DL (74-106); POTASSIUM SERUM 4.3 MMOL/L (3.5-5.1); SODIUM LEVEL 140 MMOL/L (136-145)
== END ==
LOC: M LAB REF 15:24 → M SHH 15:24
PROVIDERS: ATTEND Internal Medicine
DX: T80.211D Bloodstream infection due to central venous catheter, subsequent encounter (principal)

== ENCOUNTER 2023-02-21 16:15 | Emergency (ER) | payer OTHER ==
[~2023-02-21] VITALS: Ht 177.8 cm; Wt 104.7 kg
[2023-02-21 16:16] VITALS: BP 134/60; TEMP 97; O2SAT 99
== END 2023-02-21 18:46 | disposition home or self-care (01) ==
LOC: M ED 16:15
DX: T82.514A Breakdown (mechanical) of infusion catheter, initial encounter (principal); E03.9 Hypothyroidism, unspecified; N18.30 Chronic kidney disease, stage 3 unspecified; D64.9 Anemia, unspecified; F17.200 Nicotine dependence, unspecified, uncomplicated; F10.10 Alcohol abuse, uncomplicated; Z79.899 Other long term (current) drug therapy

== ENCOUNTER → 2023-02-27 | Outpatient (CLI) | payer OTHER ==
[2023-02-27 09:41] LABS: THYROID STIMULATING HORMONE 0.031 uIU/ML (0.55-4.78); THYROXINE (T4) 3.8 UG/DL (4.5-10.9)
== END ==
LOC: M LAB 08:32
PROVIDERS: ATTEND Nurse Practitioner Family
DX: C84.09 Mycosis fungoides, extranodal and solid organ sites (principal)

== ENCOUNTER → 2023-03-15 | Outpatient (CLI) | payer OTHER ==
[2023-03-15 10:58] LABS: BASO # 0.1 10^3/uL (0.0-0.2); BASO % 1.6 % (0.0-1.0); EOS # 0.4 10^3/uL (0.0-0.5); EOS % 7.5 % (0.0-3.0); HEMATOCRIT 39.6 % (42.0-52.0); HEMOGLOBIN 12.6 g/dl (13.5-17.5); MEAN CORPUSCULAR HEMOGLOBIN 27.8 pg (27.0-33.0); MEAN CORPUSCULAR HGB CONC 31.8 g/dl (32.0-36.5); MEAN CORPUSCULAR VOLUME 87.4 fl (80.0-96.0); MONO # 0.6 10^3/uL (0.0-0.8); NEUTROPHILS # 3.3 10^3/uL (1.5-8.5); NEUTROPHILS % 60.5 % (36.0-66.0); PLATELET COUNT, AUTOMATED 295 10^3/uL (150-450); RED BLOOD COUNT 4.53 10^6/uL (4.30-6.10); WHITE BLOOD COUNT 5.5 10^3/uL (4.0-10.0)
[2023-03-15 11:27] LABS: BLOOD UREA NITROGEN 21 MG/DL (9-23); CALCIUM LEVEL 9.5 MG/DL (8.3-10.6); CARBON DIOXIDE LEVEL 29 MMOL/L (20-31); CHLORIDE LEVEL 105 MMOL/L (98-107); CHOLESTEROL LEVEL 231 MG/DL (<200); CREATININE FOR GFR 1.19 MG/DL (0.70-1.30); GLOMERULAR FILTRATION RATE > 60.0 (>49); GLUCOSE, FASTING 74 MG/DL (74-106); POTASSIUM SERUM 3.9 MMOL/L (3.5-5.1); SODIUM LEVEL 140 MMOL/L (136-145); TRIGLYCERIDES LEVEL 355 MG/DL (<150)
[2023-03-15 11:29] LABS: FREE T4 0.51 NG/DL (0.89-1.76); THYROXINE (T4) 5.4 UG/DL (4.5-10.9)
[2023-03-15 11:30] LABS: THYROID STIMULATING HORMONE 1.061 uIU/ML (0.55-4.78)
== END ==
LOC: M LAB 10:24
PROVIDERS: ATTEND Nurse Practitioner Family
DX: C84.09 Mycosis fungoides, extranodal and solid organ sites (principal)

== ENCOUNTER → 2023-07-20 | Outpatient (CLI) | payer OTHER | LOC: M ONCR 09:48 | PROVIDERS: ATTEND General Practice | DX: C84.09 Mycosis fungoides, extranodal and solid organ sites (principal); F17.210 Nicotine dependence, cigarettes, uncomplicated; Z71.2 Person consulting for explanation of examination or test findings; Z79.890 Hormone replacement therapy; Z79.899 Other long term (current) drug therapy; Z92.21 Personal history of antineoplastic chemotherapy; Z92.29 Personal history of other drug therapy; Z92.3 Personal history of irradiation ==

== ENCOUNTER 2023-07-27 13:36 | Outpatient (RCR) | payer OTHER | END 2023-08-02 | LOC: M ONCR 13:36 | PROVIDERS: ATTEND General Practice | DX: Z51.0 Encounter for antineoplastic radiation therapy (principal); C84.09 Mycosis fungoides, extranodal and solid organ sites ==

== ENCOUNTER → 2023-08-09 | Outpatient (REF) | payer OTHER | LOC: M LAB REF 17:53 | PROVIDERS: ATTEND Otolaryngology | DX: Z96.22 Myringotomy tube(s) status (principal) ==

== ENCOUNTER 2023-08-11 12:39 | Outpatient (RCR) | payer OTHER | END 2023-08-31 | LOC: M ONCR 12:39 | PROVIDERS: ATTEND General Practice | DX: Z51.0 Encounter for antineoplastic radiation therapy (principal); C84.09 Mycosis fungoides, extranodal and solid organ sites ==

== ENCOUNTER → 2023-09-12 | Outpatient (CLI) | payer OTHER | LOC: M ONCR 12:45 | PROVIDERS: ATTEND General Practice | DX: C84.09 Mycosis fungoides, extranodal and solid organ sites (principal); L59.8 Other specified disorders of the skin and subcutaneous tissue related to radiation; W88.8XXA Exposure to other ionizing radiation, initial encounter; Z92.3 Personal history of irradiation ==

== ENCOUNTER → 2023-11-01 | Outpatient (CLI) | payer OTHER | LOC: M ONCR 10:52 | PROVIDERS: ATTEND General Practice | DX: C84.09 Mycosis fungoides, extranodal and solid organ sites (principal); Z92.3 Personal history of irradiation ==

== ENCOUNTER 2023-11-13 07:48 | Outpatient (RCR) | payer OTHER ==
[~2023-11-13 07:48] MED LIST changes: +DOXY-323 PO; +DOXY-440 PO; -DOXY-443 PO; -DOXY-444 PO
== END 2023-12-01 ==
LOC: M ONCR 07:48
PROVIDERS: ATTEND General Practice
DX: Z51.0 Encounter for antineoplastic radiation therapy (principal); C84.09 Mycosis fungoides, extranodal and solid organ sites

== ENCOUNTER → 2023-12-29 | Outpatient (CLI) | payer OTHER ==
[~2023-12-29] MED LIST changes: +OMEG-28 PO; -OMEG1CAP85 PO
== END ==
LOC: M ONCR 08:53
PROVIDERS: ATTEND General Practice
DX: R22.41 Localized swelling, mass and lump, right lower limb (principal)

== ENCOUNTER 2024-01-30 09:45 | Outpatient (RCR) | payer OTHER | END 2024-01-31 | LOC: M ONCR 09:45 | PROVIDERS: ATTEND General Practice | DX: Z51.0 Encounter for antineoplastic radiation therapy (principal); C84.09 Mycosis fungoides, extranodal and solid organ sites ==

== ENCOUNTER 2024-02-27 08:21 | Outpatient (RCR) | payer OTHER ==
[~2024-02-27 08:21] MED LIST changes: +SENN-187 PO; -SENN-83 PO
== END 2024-03-02 ==
LOC: M ONCR 08:21
PROVIDERS: ATTEND General Practice
DX: Z51.0 Encounter for antineoplastic radiation therapy (principal); C84.09 Mycosis fungoides, extranodal and solid organ sites

== ENCOUNTER → 2024-04-02 | Outpatient (CLI) | payer OTHER ==
[~2024-04-02] MED LIST changes: -DOXY-323 PO; +DOXY-441 PO; +GABA-1172 PO; -GABA-282 PO; +PENT400T47 PO; +VITA-297 PO
== END ==
LOC: M PLARAD 14:49
PROVIDERS: ATTEND Nurse Practitioner Family
DX: C84.09 Mycosis fungoides, extranodal and solid organ sites (principal)
CPT/HCPCS: 78815; A9552; G0463

== ENCOUNTER → 2024-04-02 | Outpatient (CLI) | payer OTHER | LOC: M ONCR 10:50 | PROVIDERS: ATTEND General Practice | DX: Z08 Encounter for follow-up examination after completed treatment for malignant neoplasm (principal); C84.00 Mycosis fungoides, unspecified site ==

== ENCOUNTER → 2024-04-04 | Outpatient (CLI) | payer OTHER | LOC: M ONCR 07:32 | PROVIDERS: ATTEND General Practice | DX: C84.09 Mycosis fungoides, extranodal and solid organ sites (principal) ==

== ENCOUNTER → 2024-05-02 | Outpatient (RCR) | payer OTHER ==
[~2024-05-02] MED LIST changes: +ATOR1TAB21; +FENO145T7; +HYDR-4279 PO; +LEVO125T4; +NALO4SPR NS; +ROPI1TAB73; +TAMS1CAP17; +[UNRECOGNIZED DRUG - CODE]
== END ==
LOC: M ONCR 04-04 13:40
PROVIDERS: ATTEND General Practice
DX: Z51.0 Encounter for antineoplastic radiation therapy (principal); C84.09 Mycosis fungoides, extranodal and solid organ sites

== ENCOUNTER → 2024-05-23 | Outpatient (REF) | payer OTHER ==
[~2024-05-23] MED LIST changes: -AUGM0.05 EXT; +AUGM0.0511 EXT
== END ==
LOC: M LAB REF 17:12
PROVIDERS: ATTEND Physician Assistant Medical
DX: Z96.22 Myringotomy tube(s) status (principal)

== ENCOUNTER 2024-05-24 10:52 | Outpatient (RCR) | payer OTHER | END 2024-06-01 | LOC: M ONCR 10:52 | PROVIDERS: ATTEND General Practice | DX: Z51.0 Encounter for antineoplastic radiation therapy (principal); C84.09 Mycosis fungoides, extranodal and solid organ sites ==

== ENCOUNTER → 2024-06-21 | Outpatient (REF) | payer OTHER | LOC: M LAB REF 16:45 | PROVIDERS: ATTEND Physician Assistant Medical | DX: H92.13 Otorrhea, bilateral (principal) ==

== ENCOUNTER → 2024-06-28 | Outpatient (CLI) | payer OTHER | LOC: M ONCR 10:31 | PROVIDERS: ATTEND General Practice | DX: L57.8 Other skin changes due to chronic exposure to nonionizing radiation (principal) ==

== ENCOUNTER → 2024-07-18 | Outpatient (CLI) | payer OTHER ==
[~2024-07-18] MED LIST changes: +K-PHTAB4 PO
[2024-07-18 12:38] LABS: BASO % 0.4 % (0.0-1.0); EOS % 0.4 % (0.0-3.0); HEMATOCRIT 26.2 % (42.0-52.0); HEMOGLOBIN 8.1 g/dl (13.5-17.5); LYMPH # 0.7 10^3/uL (1.5-5.0); LYMPH % 12.7 % (24.0-44.0); MEAN CORPUSCULAR HEMOGLOBIN 26.4 pg (27.0-33.0); MEAN CORPUSCULAR HGB CONC 30.9 g/dl (32.0-36.5); MEAN CORPUSCULAR VOLUME 85.3 fl (80.0-96.0); MONO # 0.5 10^3/uL (0.0-0.8); NEUTROPHILS # 4.2 10^3/uL (1.5-8.5); NEUTROPHILS % 77.3 % (36.0-66.0); PLATELET COUNT, AUTOMATED 234 10^3/uL (150-450); RED BLOOD COUNT 3.07 10^6/uL (4.30-6.10); WHITE BLOOD COUNT 5.5 10^3/uL (4.0-10.0)
== END ==
LOC: M PLALAB 10:53
PROVIDERS: ATTEND Internal Medicine Infectious Disease
DX: R50.9 Fever, unspecified (principal)

== ENCOUNTER 2024-07-19 10:37 | Outpatient (CLI) | payer OTHER ==
[~2024-07-19] VITALS: Ht 177.8 cm; Wt 94.0 kg
[2024-07-19 11:00] VITALS: BP 116/56; O2SAT 100
[2024-07-19] MEDS: DALBAVANCIN 1,500 MG in D5W 250 ML IV ONE (11:42)
[2024-07-19] MEDS: SODIUM CHLORIDE 0.9% INJ 10 ML SYR IV SCH (11:43)
[2024-07-19 12:30] VITALS: BP 108/52; O2SAT 100
== END 2024-07-19 12:30 | disposition home or self-care (01) ==
LOC: M INFU 10:37
PROVIDERS: ATTEND Internal Medicine Infectious Disease
DX: A49.02 Methicillin resistant Staphylococcus aureus infection, unspecified site (principal)
CPT/HCPCS: 36591; 87040; 96365; 96366; 96375; J0875; J1642

== ENCOUNTER → 2024-07-29 | Outpatient (CLI) | payer OTHER | LOC: M ONCR 10:42 | PROVIDERS: ATTEND General Practice | DX: A49.02 Methicillin resistant Staphylococcus aureus infection, unspecified site (principal); L02.01 Cutaneous abscess of face; Z92.3 Personal history of irradiation; R52 Pain, unspecified; Z79.891 Long term (current) use of opiate analgesic ==

== ENCOUNTER → 2024-08-13 | Outpatient (CLI) | payer OTHER | LOC: M PLARAD 14:08 | PROVIDERS: ATTEND Dermatology | DX: C84.00 Mycosis fungoides, unspecified site (principal); A49.02 Methicillin resistant Staphylococcus aureus infection, unspecified site; I87.313 Chronic venous hypertension (idiopathic) with ulcer of bilateral lower extremity; H60.393 Other infective otitis externa, bilateral; R50.9 Fever, unspecified; L30.1 Dyshidrosis [pompholyx]; L02.01 Cutaneous abscess of face; Z22.322 Carrier or suspected carrier of Methicillin resistant Staphylococcus aureus | CPT/HCPCS: 78816; A9552; G0463 ==

== ENCOUNTER → 2024-09-12 | Outpatient (REF) | payer OTHER ==
[2024-09-12 14:27] LABS: APPEARANCE, URINE HAZY (CLEAR); BACTERIA, URINE AUTO NEGATIVE (NEGATIVE); BILIRUBIN, URINE AUTO 1+ (NEGATIVE); BLOOD, URINE BLOOD NEGATIVE (NEGATIVE); COLOR, URINE AMBER (YELLOW); GLUCOSE, URINE (UA) AUTO NEGATIVE (NEGATIVE); KETONE, URINE AUTO NEGATIVE (NEGATIVE); LEUKOCYTE ESTERASE, URINE AUTO NEGATIVE (NEGATIVE); MUCUS, URINE SMALL (NEGATIVE); NITRITE, URINE AUTO NEGATIVE (NEGATIVE); PROTEIN, URINE AUTO 1+ mg/dL (NEGATIVE); RBC, URINE AUTO 7 /HPF (0-3); SQUAMOUS EPITHELIAL CELL UR AU 0 /HPF (0-6); WBC, URINE AUTO 2 /HPF (0-3)
== END ==
LOC: M LAB REF 12:37
PROVIDERS: ATTEND Nurse Practitioner Family
DX: L08.9 Local infection of the skin and subcutaneous tissue, unspecified (principal); B95.62 Methicillin resistant Staphylococcus aureus infection as the cause of diseases classified elsewhere; C84.09 Mycosis fungoides, extranodal and solid organ sites

== ENCOUNTER → 2024-09-26 | Outpatient (CLI) | payer OTHER ==
[~2024-09-26] MED LIST changes: +ATIV1TAB10 PO
[2024-09-26 16:56] LABS: HEMATOCRIT 22.2 % (42.0-52.0); HEMOGLOBIN 7.4 g/dl (13.5-17.5); LYMPH # 1.1 10^3/uL (1.5-5.0); LYMPH % 12.8 % (24.0-44.0); MEAN CORPUSCULAR HEMOGLOBIN 29.8 pg (27.0-33.0); MEAN CORPUSCULAR HGB CONC 33.3 g/dl (32.0-36.5); MEAN CORPUSCULAR VOLUME 89.5 fl (80.0-96.0); MONO # 0.6 10^3/uL (0.0-0.8); MONO % 7.2 % (2.0-8.0); NEUTROPHILS # 6.6 10^3/uL (1.5-8.5); NEUTROPHILS % 79.5 % (36.0-66.0); RED BLOOD COUNT 2.48 10^6/uL (4.30-6.10); WHITE BLOOD COUNT 8.3 10^3/uL (4.0-10.0)
[2024-09-26 17:19] LABS: PLATELET COUNT, AUTOMATED 69 10^3/uL (150-450)
[2024-09-26 17:20] LABS: SOURCE PERIPHERAL SMEAR
[2024-09-26 17:31] LABS: ALBUMIN 1.4 G/DL (3.2-5.2); BILIRUBIN,TOTAL 3.3 MG/DL (0.3-1.2); CALCIUM LEVEL 7.9 MG/DL (8.3-10.6); CREATININE FOR GFR 1.81 MG/DL (0.70-1.30); GLOMERULAR FILTRATION RATE 40.5 (>49); POTASSIUM SERUM 4.1 MMOL/L (3.5-5.1); TOTAL PROTEIN 6.8 G/DL (5.7-8.2)
== END ==
LOC: M ONCR 14:56
PROVIDERS: ATTEND General Practice
DX: C84.09 Mycosis fungoides, extranodal and solid organ sites (principal); F17.210 Nicotine dependence, cigarettes, uncomplicated; R17 Unspecified jaundice; R64 Cachexia; Z66 Do not resuscitate; Z79.891 Long term (current) use of opiate analgesic; Z79.899 Other long term (current) drug therapy
CPT/HCPCS: 36415; 80053; 80503; 85025; 85049; 85055; 86850; G0463

== ENCOUNTER → 2024-09-26 | Outpatient (CLI) | payer OTHER | LOC: M PAL 16:00 | PROVIDERS: ATTEND Family Medicine | DX: Z51.5 Encounter for palliative care (principal); Z66 Do not resuscitate; C84.00 Mycosis fungoides, unspecified site; Z87.891 Personal history of nicotine dependence; E78.5 Hyperlipidemia, unspecified; Z79.899 Other long term (current) drug therapy ==

== ENCOUNTER → 2024-09-27 | Outpatient (CLI) | payer OTHER ==
[2024-09-27 09:38] VITALS: BP 142/84; TEMP 96.4; O2SAT 98
[2024-09-27 09:53] VITALS: BP 140/89; TEMP 96.8; O2SAT 100
[2024-09-27 10:38] VITALS: BP 144/80; TEMP 97.2; O2SAT 99
[2024-09-27] MEDS: NS (Normal Saline) 0.9% 1,000 ML IV ONE (11:10)
[2024-09-27] MEDS: dexAMETHasone 20MG/5ML VIAL IV ONE (12:41)
== END ==
LOC: M ONCR 08:08
PROVIDERS: ATTEND General Practice
DX: C84.09 Mycosis fungoides, extranodal and solid organ sites (principal); E86.0 Dehydration
CPT/HCPCS: 36430; 86920; G0463; J1100; P9016